=== PATIENT | female | born 1965 | race African-American/Black ===

== ENCOUNTER 2017-10-21 12:21 | Inpatient (IN) | payer OTHER ==
[~2017-10-21] VITALS: Ht 160 cm; Wt 93.0 kg
[~2017-10-21 12:21] MED LIST: AMLODIPINE BESYL5 MG PO; ATROPINE SULFAT15 ML OD; CETIRIZINE HCL10 MG PO; COREG12.5 MG PO; DOXAZOSIN MESYLA2 MG PO; DUREZOL5 ML OD; FUROSEMIDE40 MG/4 ML IV; GABAPENTIN100 MG PO; HYDRALAZINE HCL25 MG PO; ISOSORBIDE MONO20 MG PO; LABETALOL HCL200 MG PO; LASIX20 MG PO; LASIX40 MG PO; LEVAQUIN250 MG PO; LEVEMIR100 UNIT/1 SQ; LIPITOR80 MG PO; METHAZOLAMIDE50 MG PO; NIFEDICAL XL60 MG PO; PANTOPRAZOLE SO40 MG PO; PAROXETINE HCL20 MG PO; PLAVIX75 MG PO; PREDNISONE10 MG PO; PREDNISONE20 MG PO; PROAIR HFA INH8.5 GM INH; SYMBICORT 16010.2 GM INH; ZOFRAN ODT4 MG SL
--- NOTE | 2017-10-21 12:59 | Diagnostic Imaging Report ---
PROCEDURE: CHEST SINGLE (PORTABLE) COMPARISON: Chest radiograph 01/15/2017, chest CT 01/16/2017 INDICATIONS: CHEST PAIN FINDINGS: Lungs are reasonably well inflated. No focal airspace consolidation, pleural effusion, or pneumothorax. Stable cardiomediastinal contour with mild bilateral hilar prominence shown to represent prominent pulmonary arterial structures on comparison chest CT. Pulmonary venous congestion. No acute osseous abnormality. CONCLUSION: Pulmonary venous congestion, similar in degree to that noted in December 2016. Dictated by: Gama Perez M.D. on 10/21/2017 at 13:06 Electronically approved by: Gama Perez M.D. on 10/21/2017 at 13:06
[2017-10-21 13:06] LABS: BASOPHILS % 0.1 % (0.0-1.0); EOSINOPHILS # (AUTO) 0.1 (0.0-0.4); HEMATOCRIT 32.1 % (34.2-44.1); HEMOGLOBIN 10.1 g/dL (12.0-16.0); LYMPHOCYTES # (AUTO) 0.4 (1.0-3.2); LYMPHOCYTES % 5.5 % (18.0-39.1); MEAN CORPUSCULAR HEMOGLOBIN 27.7 pg (28-32); MEAN CORPUSCULAR HGB CONC 31.5 g/dL (31-35); MEAN CORPUSCULAR VOLUME 88.2 fL (81-99); MONOCYTES # (AUTO) 0.5 (0.2-0.8); MONOCYTES % 6.7 % (4.4-11.3); NEUTROPHILS # (AUTO) 6.8 (2.1-6.9); NEUTROPHILS % 86.2 % (38.7-80.0); PLATELET COUNT 212 x10e3/uL (140-360); RED BLOOD COUNT 3.64 x10e6/uL (3.6-5.1); RED CELL DISTRIBUTION WIDTH 14.2 % (11.7-14.4)
[2017-10-21 13:19] LABS: INR 0.92; PROTHROMBIN TIME 12.8 seconds (11.9-14.5)
[2017-10-21 13:29] LABS: ALBUMIN 3.9 g/dL (3.5-5.0); ALBUMIN/GLOBULIN RATIO 0.8 (0.8-2.0); ANION GAP 17.2 mmol/L (8-16); CALCIUM 9.6 mg/dL (8.4-10.2); CREATININE, SERUM 4.34 mg/dL (0.57-1.11); POTASSIUM 3.2 mmol/L (3.5-5.1)
[2017-10-21 13:36] LABS: CREATINE KINASE MB 1.6 ng/mL (0.00-5.00); TROPONIN I 0.07 ng/mL (0-0.300)
[2017-10-21] MEDS ORDERED: FUROSEMIDE INJ 10 MG/ML 4 ML VIAL IV ONE ×2 (14:00)
[2017-10-21] MEDS: NIFEDIPINE CR 30 MG TAB PO SCH (16:59)
[2017-10-21] MEDS ORDERED: FUROSEMIDE INJ 10 MG/ML 4 ML VIAL IV SCH ×2 (17:00→21:00)
--- NOTE | 2017-10-21 17:58 | Consultation ---
DATE OF CONSULTATION: October 21, 2017 RENAL CONSULTATION HISTORY OF PRESENT ILLNESS: Ms. Leslie Glez is well known to me. She is a 52-year-old female. Underlying history of chronic kidney disease stage 4. Prior acute kidney injury, congestive heart failure, fluid overload. Difficult to control hypertension. Very noncompliant. Admitted with fluid overload and congestive heart failure. Renal consult for management of kidney failure. Creatinine 4.34. Bicarbonate 21. Potassium 3.2. White count 7.9. Hemoglobin 10.1. INR 0.92. LFTs relatively normal. Patient currently awake, alert, lying supine, no apparent respiratory distress. Denies nausea, vomiting, shortness of breath or cough. Also denies any fever and chills. Chest x-ray highly suggestive of congestive heart failure with fluid in the fissure, cardiomegaly, bilateral pulmonary infiltrates. Currently on Lasix 80 mg IV b.i.d. She is on heparin, nifedipine 30 mg p.o. q.12. For dose schedule, please see MAR. SOCIAL HISTORY: Does not smoke or drink. FAMILY HISTORY: Significant for hypertension. PHYSICAL EXAMINATION: GENERAL: Awake, alert, lying supine, no apparent distress. VITALS: Blood pressure of 130/60, pulse rate 80. HEAD AND NECK: Cornea clear. Oral mucosa dry. Neck veins flat. LUNGS: Harsh vesicular breath sounds, relatively clear with scattered rales bilateral bibasilar. HEART: S1/S2 audible. No rubs or gallop. ABDOMEN: Otherwise soft, nontender. LOWER EXTREMITY EXAMINATION: Shows 1+ edema. IMPRESSION: [id number] kidney failure with evidence of third-spacing edema, congestive heart failure, hypertensive heart failure. Titrate blood pressure medications. Will discontinue Lasix, start diuresing. No acute indications for dialysis. Discussed with RN. Discussed with patient. Will place on salt and fluid restriction. Further recommendations to follow. Job#: [id number] СВЕТЛАНА
[2017-10-21 19:21] VITALS: BP 148/72
[2017-10-21] MEDS: ALBUTEROL/IPRATROPIUM 3 ML NEB NEB SCH ×2 (20:14→23:20)
[2017-10-21 21:39] LABS: CREATINE KINASE MB 1.3 ng/mL (0.00-5.00); TROPONIN I 0.092 ng/mL (0-0.300)
[2017-10-21] MEDS: HEPARIN SOD (PORCINE) 5,000 UNIT/ML VIAL SC SCH (22:00)
[2017-10-21] MEDS: BUMETANIDE INJ 0.25MG/ML 4ML VIAL IV SCH (22:00)
[2017-10-22 00:30] VITALS: BP 165/87
[2017-10-22] MEDS: HYDRALAZINE HCL 20 MG/ML VIAL IV PRN ×2 (00:40→05:00)
[2017-10-22] MEDS: ACETAMINOPHEN 325 MG TAB PO PRN (01:15)
[2017-10-22] MEDS: ALBUTEROL/IPRATROPIUM 3 ML NEB NEB SCH ×5 (02:17→23:00)
[2017-10-22 04:00] VITALS: BP 164/91
[2017-10-22] MEDS: BUMETANIDE INJ 0.25MG/ML 4ML VIAL IV SCH ×3 (05:56→21:21)
--- NOTE | 2017-10-22 06:42 | Diagnostic Imaging Report ---
EXAM: CHEST SINGLE (PORTABLE), AP 1 view DATE: 10/22/2017 7:00 AM Time stamp on exam: 0556 hours INDICATION: Cough COMPARISON: AP view of the chest October 21, 2017 FINDINGS: LINES/TUBES: None LUNGS: Pulmonary edema PLEURA: No effusions or pneumothorax. HEART AND MEDIASTINUM: Stable appearance with mediastinal lymphadenopathy BONES AND SOFT TISSUES: No acute findings. IMPRESSION: No interval change Signed by: Dr. Ninoska Melendez M.D. on 10/22/2017 6:39 AM
[2017-10-22 07:21] LABS: BASOPHILS % 0.1 % (0.0-1.0); EOSINOPHILS % 0.1 % (0.0-6.0); HEMATOCRIT 31.9 % (34.2-44.1); HEMOGLOBIN 9.8 g/dL (12.0-16.0); LYMPHOCYTES # (AUTO) 0.3 (1.0-3.2); LYMPHOCYTES % 2.5 % (18.0-39.1); MEAN CORPUSCULAR HEMOGLOBIN 27.8 pg (28-32); MEAN CORPUSCULAR HGB CONC 30.7 g/dL (31-35); MEAN CORPUSCULAR VOLUME 90.6 fL (81-99); MONOCYTES # (AUTO) 0.7 (0.2-0.8); MONOCYTES % 6.2 % (4.4-11.3); NEUTROPHILS # (AUTO) 9.5 (2.1-6.9); NEUTROPHILS % 90.7 % (38.7-80.0); PLATELET COUNT 165 x10e3/uL (140-360); RED BLOOD COUNT 3.52 x10e6/uL (3.6-5.1); RED CELL DISTRIBUTION WIDTH 14.3 % (11.7-14.4)
[2017-10-22 07:53] LABS: ALBUMIN 3.3 g/dL (3.5-5.0); ALBUMIN/GLOBULIN RATIO 0.8 (0.8-2.0); ANION GAP 16.2 mmol/L (8-16); CALCIUM 9.6 mg/dL (8.4-10.2); CREATININE, SERUM 4.4 mg/dL (0.57-1.11); MAGNESIUM 2.1 MG/DL (1.3-2.1); POTASSIUM 3.2 mmol/L (3.5-5.1)
[2017-10-22] MEDS: ASPIRIN 81 MG CHEW TAB PO SCH (08:36)
[2017-10-22] MEDS: NIFEDIPINE CR 30 MG TAB PO SCH ×2 (08:36→16:50)
[2017-10-22] MEDS: HEPARIN SOD (PORCINE) 5,000 UNIT/ML VIAL SC SCH ×2 (08:37→21:21)
[2017-10-22 08:40] VITALS: BP 164/94
[2017-10-22 08:43] LABS: CREATINE KINASE MB 0.9 ng/mL (0.00-5.00); TROPONIN I 0.158 ng/mL (0-0.300)
[2017-10-22 10:38] LABS: BAND NEUTROPHILS % (MANUAL) 4 %; LYMPHOCYTES % (MANUAL) 2 % (19-48); MONOCYTES % (MANUAL) 8 % (3.4-9.0); NEUTROPHILS % (MANUAL) 86 % (40-74); PLATELET ESTIMATE ADEQUATE; RBC MORPHOLOGY COMMENT NORMAL
[2017-10-22 10:39] LABS: PLATELET MORPHOLOGY COMMENT FEW EDTA CLUMPING
[2017-10-22] MEDS ORDERED: LEVOFLOXACIN 500 MG TAB PO ONE (12:45)
[2017-10-22] MEDS ORDERED: POTASSIUM CHLORIDE 20 MEQ TAB CR PO ONE (14:00)
[2017-10-22] MEDS ORDERED: LACTULOSE SYRUP 20 GM/30 ML UDC PO ONE (14:15)
[2017-10-22] MEDS ORDERED: AZITHROMYCIN 250MG/NS 100 ML 100 ML IV ONE (16:00)
[2017-10-22 16:19] VITALS: BP 130/79
[2017-10-22] MEDS: CEFTRIAXONE SOD 1 GM in WATER STERILE 10ML VIAL 10 ML IV SCH (16:50)
[2017-10-22 20:00] VITALS: BP 142/76
--- NOTE | 2017-10-22 21:53 | Diagnostic Imaging Report ---
EXAM: CT CHEST WO DATE: 10/22/2017 3:52 PM Time stamp on exam: 2047 hours INDICATION: Coughing up blood, pulmonary edema COMPARISON: AP view the chest October 22, [address] of the chest January 16, 2017 TECHNIQUE: Multidetector CT scanning of the chest was performed. Coronal and sagittal multiplanar reformations were obtained. Routine protocol performed. IV Contrast: None CTDIvol has been reviewed. It is below the limits set by the Radiation Protocol Committee (RPC). FINDINGS: LUNGS AND AIRWAYS: The trachea and major bronchi are unremarkable. Groundglass opacities in the bilateral upper lungs, left lower lobe and a larger conglomerate of centrilobular groundglass opacities in the right lung base. PLEURA: No effusions or pneumothorax. HEART, MEDIASTINUM, VESSELS: No interval change. Stable mediastinal lymphadenopathy. Mild nonspecific debris in the esophagus. UPPER ABDOMEN: Cholecystectomy MUSCULOSKELETAL: No acute findings. IMPRESSION: Interval development of bilateral multilobar centrilobular groundglass opacities, predominantly in the right lung base. The differential includes multifocal pneumonia, aspiration or hemorrhage. Signed by: Dr. Ninoska Melendez M.D. on 10/22/2017 9:49 PM
[2017-10-23] VITALS: BP 136/70
[2017-10-23 04:00] VITALS: BP 141/72
[2017-10-23] MEDS: BUMETANIDE INJ 0.25MG/ML 4ML VIAL IV SCH ×3 (06:05→21:13)
--- NOTE | 2017-10-23 06:09 | Diagnostic Imaging Report ---
EXAM: CHEST SINGLE (PORTABLE), AP 1 view DATE: 10/23/2017 5:38 AM Time stamp on exam: 0527 hours INDICATION: Cough COMPARISON: AP view of the chest October 22, 2017 FINDINGS: LINES/TUBES: None LUNGS: Bilateral groundglass opacities, largest in the right lung base. PLEURA: No effusions or pneumothorax. HEART AND MEDIASTINUM: Mediastinal lymphadenopathy. BONES AND SOFT TISSUES: No acute findings. IMPRESSION: Stable appearance of the chest with bilateral groundglass opacities, largest in the right lung base. Signed by: Dr. Ninoska Melendez M.D. on 10/23/2017 6:05 AM
[2017-10-23 06:27] LABS: BASOPHILS % 0.1 % (0.0-1.0); EOSINOPHILS # (AUTO) 0.1 (0.0-0.4); EOSINOPHILS % 0.5 % (0.0-6.0); HEMATOCRIT 27.1 % (34.2-44.1); HEMOGLOBIN 8.4 g/dL (12.0-16.0); LYMPHOCYTES # (AUTO) 0.8 (1.0-3.2); LYMPHOCYTES % 8.6 % (18.0-39.1); MEAN CORPUSCULAR VOLUME 90.3 fL (81-99); MONOCYTES # (AUTO) 0.9 (0.2-0.8); MONOCYTES % 9.6 % (4.4-11.3); NEUTROPHILS # (AUTO) 7.5 (2.1-6.9); NEUTROPHILS % 80.8 % (38.7-80.0); PLATELET COUNT 176 x10e3/uL (140-360)
[2017-10-23 06:51] LABS: ANION GAP 12.4 mmol/L (8-16); CALCIUM 9.2 mg/dL (8.4-10.2); CREATININE, SERUM 4.68 mg/dL (0.57-1.11); MAGNESIUM 1.9 MG/DL (1.3-2.1); POTASSIUM 3.4 mmol/L (3.5-5.1)
[2017-10-23] MEDS: ALBUTEROL/IPRATROPIUM 3 ML NEB NEB SCH ×3 (07:00→20:05)
[2017-10-23 07:13] LABS: THYROID STIMULATING HORMONE 0.945 uIU/mL (0.350-4.940)
[2017-10-23 08:36] VITALS: BP 131/74
[2017-10-23] MEDS: ASPIRIN 81 MG CHEW TAB PO SCH (08:55)
[2017-10-23] MEDS: NIFEDIPINE CR 30 MG TAB PO SCH ×2 (08:55→18:22)
[2017-10-23] MEDS: HEPARIN SOD (PORCINE) 5,000 UNIT/ML VIAL SC SCH ×2 (08:58→21:30)
[2017-10-23 12:19] VITALS: BP 127/66
[2017-10-23 16:20] VITALS: BP 122/72
--- NOTE | 2017-10-23 16:33 | Consultation ---
DATE OF CONSULTATION: October 23, 2017 PULMONARY CONSULTATION ADDENDUM: Ms. Glez did smoke for 40 years, but has quit. She has a history of exposure to syphilis. She admits that she did not complete treatment. Job#: [id number] GH
--- NOTE | 2017-10-23 16:38 | Consultation ---
DATE OF CONSULTATION: October 23, 2017 PULMONARY CONSULTATION A patient of Dr. Montano, Dr. Pierce. An unfortunate 52-year-old woman with a history of congestive heart failure, cardiomyopathy of uncertain etiology, history of chronic kidney disease, history of hypertension, history of stroke with blindness in the right eye. Ejection fraction in the past has been estimated at 25%. She has presumed obstructive sleep apnea. SHE IS ALLERGIC TO PENICILLIN. Her medications currently include Lipitor, Zyrtec, Plavix, Cardura, Lasix, Ismo, labetalol, nifedipine, Protonix, Paxil, prednisone 10. She has had an AV fistula placed in the left arm. She has had carpal tunnel surgery. Nonsmoker. Worked in a skilled nursing. Family history noncontributory. PHYSICAL EXAMINATION GENERAL: This is a moderately obese white female looking somewhat older than her stated age. VITAL SIGNS: Temperature max 100.5, pulse 84, respirations 18, blood pressure 131/70. NEUROLOGIC: She is somewhat anxious. LUNGS: Rales, right greater than left. HEART: Regular rhythm. ABDOMEN: Nontender. EXTREMITIES: AV fistula left arm, apparently never accessed. IMPRESSION: 1. Chronic kidney disease. 2. Hypertension. 3. Polyclonal gammopathy. 4. Congestive heart failure. 5. Presumed pneumonia right lung. 6. Possible aspiration. PLAN: Will be continuing empiric antibiotics. Therapy of broad-spectrum antibiotic coverage to include anaerobic organisms. BiPAP p.r.n. Sleep apnea is noted. Thank you for this kind referral. Job#: [id number] EV
[2017-10-23] MEDS: CEFTRIAXONE SOD 1 GM in WATER STERILE 10ML VIAL 10 ML IV SCH (18:22)
[2017-10-23] MEDS: DOXYCYCLINE HYCLATE TABLET 100 MG TAB PO SCH (18:23)
[2017-10-23 19:51] VITALS: BP 123/74
[2017-10-23] MEDS: ACETAMINOPHEN 325 MG TAB PO PRN (20:56)
[2017-10-23 22:11] LABS: BILIRUBIN,URINE NEGATIVE (NEGATIVE); KETONES,URINE NEGATIVE (NEGATIVE); LEUKOCYTE ESTERASE ,URINE NEGATIVE (NEGATIVE); NITRITE,URINE NEGATIVE (NEGATIVE); PROTEIN,URINE DIPSTICK 3+ (NEGATIVE); URINE UROBILINOGEN 0.2 mg/dL (0.2 - 1)
[2017-10-23 22:12] LABS: CLARITY,URINE SL CLOUDY (CLEAR); COLOR,URINE YELLOW (YELLOW)
[2017-10-23 22:23] LABS: AMORPHOUS SEDIMENT,URINE MANY (FEW); BACTERIA,URINE FEW /HPF; EPITHELIAL CELLS,URINE MODERATE /LPF; RBC,URINE 0-5 /HPF (0-5); WBC,URINE (MAN) 0-5 /HPF (0-5)
[2017-10-24 00:23] VITALS: BP 128/69
[2017-10-24] MEDS: ALBUTEROL/IPRATROPIUM 3 ML NEB NEB SCH ×4 (00:30→20:12)
[2017-10-24] MEDS: ACETAMINOPHEN/CODEINE 300MG - 30MG TAB PO PRN ×2 (01:30→21:28)
[2017-10-24 05:21] VITALS: BP 122/63
[2017-10-24] MEDS: BUMETANIDE INJ 0.25MG/ML 4ML VIAL IV SCH ×3 (06:10→22:00)
[2017-10-24 06:31] LABS: BASOPHILS % 0.1 % (0.0-1.0); EOSINOPHILS # (AUTO) 0.2 (0.0-0.4); HEMATOCRIT 25.6 % (34.2-44.1); HEMOGLOBIN 8.1 g/dL (12.0-16.0); LYMPHOCYTES # (AUTO) 0.8 (1.0-3.2); LYMPHOCYTES % 10.9 % (18.0-39.1); MEAN CORPUSCULAR HGB CONC 31.6 g/dL (31-35); MEAN CORPUSCULAR VOLUME 88.6 fL (81-99); MONOCYTES # (AUTO) 0.7 (0.2-0.8); MONOCYTES % 9.1 % (4.4-11.3); NEUTROPHILS # (AUTO) 5.7 (2.1-6.9); NEUTROPHILS % 77.2 % (38.7-80.0); PLATELET COUNT 187 x10e3/uL (140-360); RED BLOOD COUNT 2.89 x10e6/uL (3.6-5.1); RED CELL DISTRIBUTION WIDTH 14.1 % (11.7-14.4)
[2017-10-24 06:52] LABS: ALBUMIN 2.9 g/dL (3.5-5.0); ALBUMIN/GLOBULIN RATIO 0.7 (0.8-2.0); ANION GAP 13.5 mmol/L (8-16); CREATININE, SERUM 5.3 mg/dL (0.57-1.11); POTASSIUM 3.5 mmol/L (3.5-5.1)
[2017-10-24 07:33] LABS: HIV 1&2 AB SCREEN NON-REACTIVE (NONREACTIVE)
--- NOTE | 2017-10-24 08:29 | Consultation ---
DATE OF CONSULTATION: October 22, 2017 REQUESTING PHYSICIAN: Dr. Bradshaw. REASON FOR CONSULTATION: History for recent positive RPR. HISTORY OF PRESENT ILLNESS: The patient is a 52-year-old female patient recently admitted to [facility] with a chief complaint of pulmonary edema and fluid overload. She was treated and discharged home, but within 72 hours came back to [facility] with a chief complaint of shortness of breath and cough, and was found to have pulmonary edema and currently nephrology is treating her. 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 She denies any similar history in the past. She does not recall having being treated or tested in the past. PAST MEDICAL HISTORY: 1. Positive for hypertension. 2. Chronic kidney disease, stage 4. ALLERGIES: PENICILLIN. CURRENT HOSPITAL MEDICATIONS: She is not on any medicines at this point. FAMILY HISTORY: Positive for diabetes. SOCIAL HISTORY: She does not smoke or drink. REVIEW OF SYSTEMS: Ten systems reviewed. Those were negative except as per history of present illness. PHYSICAL EXAMINATION VITAL SIGNS: Temperature was up to 101.5, heart rate 108, respirations 20, blood pressure 164/94. HEENT: Pupils are equal and reactive. Throat is clear. CHEST: Clear. HEART: Regular rhythm and rate. No murmurs. ABDOMEN: Soft and lax. Liver and spleen not enlarged. No masses or areas of tenderness. No guarding or rigidity. EXTREMITIES: Lower extremities with no edema. LABORATORY DATA: Her white count is 10.49, hemoglobin 9.8, hematocrit 31.9, platelet count 165,000. Chemistry shows sodium 144, potassium 3.2, chloride 110, CO2 of 21, BUN 16.2, is 41, creatinine 4.4, blood sugar 10. LFTs are within normal limits. Flu A and B were negative. IMAGING: Chest x-ray shows pulmonary vascular congestion. IMPRESSION 1. Fever, rule out pneumonia versus other. Will order a UA and urine culture also. Will also order 2 sets of blood cultures. Will order CT scan of the chest as I believe the patient possibly could have pneumonia. 2. As far as the history of LFT antibodies positive, she could be having latent tuberculosis versus old treated syphilis. Will need more detailed history and will also need to confirm the test as I do not have that result available at this stage. 3. Hypertension. 4. Chronic kidney disease stage 4. RECOMMENDATIONS: 1. CT chest without contrast. 2. Repeat RPR and LFT antibodies. 3. Will order Rocephin and azithromycin for now. 4. Pending clinical response, further recommendations to follow. Thank you for the kind consultation. Job#: [id number] ABDOULAYE
[2017-10-24 08:49] VITALS: BP 104/59
[2017-10-24] MEDS: ASPIRIN 81 MG CHEW TAB PO SCH (09:29)
[2017-10-24] MEDS: NIFEDIPINE CR 30 MG TAB PO SCH ×2 (09:30→17:08)
[2017-10-24] MEDS: DOXYCYCLINE HYCLATE TABLET 100 MG TAB PO SCH ×2 (09:30→17:09)
[2017-10-24] MEDS: HEPARIN SOD (PORCINE) 5,000 UNIT/ML VIAL SC SCH ×2 (09:39→21:20)
[2017-10-24] MEDS ORDERED: DEXTROSE 50% SYRINGE 50 ML IV PRN (11:30)
[2017-10-24] MEDS: INSULIN LISPRO 100 UNIT/1 ML 3ML VIAL SQ SCH ×3 (11:30→21:00)
[2017-10-24 16:32] VITALS: BP 121/73
[2017-10-24] MEDS: CEFTRIAXONE SOD 1 GM in WATER STERILE 10ML VIAL 10 ML IV SCH (17:08)
[2017-10-24 21:07] VITALS: BP 133/67
[2017-10-24] MEDS: BENZONATATE 100 MG CAP PO SCH (22:28)
[2017-10-24] MEDS ORDERED: BENZONATATE 100 MG CAP PO ONE (22:30)
[2017-10-25 00:33] VITALS: BP 130/68
[2017-10-25] MEDS: ALBUTEROL/IPRATROPIUM 3 ML NEB NEB SCH ×4 (00:50→20:01)
[2017-10-25 05:03] VITALS: BP 118/64
[2017-10-25] MEDS: BUMETANIDE INJ 0.25MG/ML 4ML VIAL IV SCH ×3 (06:00→21:26)
[2017-10-25] MEDS: INSULIN LISPRO 100 UNIT/1 ML 3ML VIAL SQ SCH ×4 (07:30→21:00)
[2017-10-25 08:00] VITALS: BP 135/77
[2017-10-25 08:21] LABS: BASOPHILS % 0.3 % (0.0-1.0); EOSINOPHILS # (AUTO) 0.2 (0.0-0.4); EOSINOPHILS % 3.3 % (0.0-6.0); HEMATOCRIT 26.6 % (34.2-44.1); HEMOGLOBIN 8.3 g/dL (12.0-16.0); LYMPHOCYTES % 16.3 % (18.0-39.1); MEAN CORPUSCULAR HEMOGLOBIN 27.9 pg (28-32); MEAN CORPUSCULAR HGB CONC 31.2 g/dL (31-35); MEAN CORPUSCULAR VOLUME 89.6 fL (81-99); MONOCYTES # (AUTO) 0.5 (0.2-0.8); MONOCYTES % 8.7 % (4.4-11.3); NEUTROPHILS # (AUTO) 4.1 (2.1-6.9); NEUTROPHILS % 70.2 % (38.7-80.0); PLATELET COUNT 205 x10e3/uL (140-360); RED BLOOD COUNT 2.97 x10e6/uL (3.6-5.1); RED CELL DISTRIBUTION WIDTH 14.1 % (11.7-14.4)
[2017-10-25 08:31] LABS: ANION GAP 14.5 mmol/L (8-16); CALCIUM 9.2 mg/dL (8.4-10.2); CREATININE, SERUM 5.45 mg/dL (0.57-1.11); MAGNESIUM 1.8 MG/DL (1.3-2.1); POTASSIUM 3.5 mmol/L (3.5-5.1)
[2017-10-25] MEDS: NIFEDIPINE CR 30 MG TAB PO SCH ×2 (09:00→16:23)
[2017-10-25] MEDS: BENZONATATE 100 MG CAP PO SCH ×2 (09:24→16:23)
[2017-10-25] MEDS: ASPIRIN 81 MG CHEW TAB PO SCH (09:24)
[2017-10-25] MEDS: DOXYCYCLINE HYCLATE TABLET 100 MG TAB PO SCH ×2 (09:24→16:23)
[2017-10-25] MEDS: HEPARIN SOD (PORCINE) 5,000 UNIT/ML VIAL SC SCH ×2 (09:29→21:25)
[2017-10-25 12:00] VITALS: BP 128/66
[2017-10-25] MEDS ORDERED: LACTULOSE SYRUP 20 GM/30 ML UDC PO ONE (12:00)
[2017-10-25] MEDS: CEFTRIAXONE SOD 1 GM in WATER STERILE 10ML VIAL 10 ML IV SCH (16:00)
[2017-10-25] MEDS: NYSTATIN 15 GM POWDER UD BTL TOP SCH (16:23)
[2017-10-25 16:30] VITALS: BP 138/74
[2017-10-25 19:53] VITALS: BP 137/68
[2017-10-26] VITALS (7 sets, daily range): BP systolic 135–154; BP diastolic 71–85
[2017-10-26] MEDS: ALBUTEROL/IPRATROPIUM 3 ML NEB NEB SCH ×4 (00:44→23:18)
[2017-10-26] MEDS: BUMETANIDE INJ 0.25MG/ML 4ML VIAL IV SCH ×3 (06:05→22:09)
[2017-10-26] MEDS: INSULIN LISPRO 100 UNIT/1 ML 3ML VIAL SQ SCH ×4 (07:30→20:33)
[2017-10-26 07:33] LABS: INR 0.95; PROTHROMBIN TIME 13.2 seconds (11.9-14.5)
[2017-10-26 07:34] LABS: PARTIAL THROMBOPLASTIN TIME 33.4 seconds (23.8-35.5)
[2017-10-26 08:00] LABS: ALBUMIN 2.6 g/dL (3.5-5.0); ALBUMIN/GLOBULIN RATIO 0.6 (0.8-2.0); ANION GAP 14.6 mmol/L (8-16); CALCIUM 8.9 mg/dL (8.4-10.2); CREATININE, SERUM 5.35 mg/dL (0.57-1.11); POTASSIUM 3.6 mmol/L (3.5-5.1)
[2017-10-26] MEDS: HEPARIN SOD (PORCINE) 5,000 UNIT/ML VIAL SC SCH ×2 (08:39→20:30)
[2017-10-26] MEDS: NYSTATIN 15 GM POWDER UD BTL TOP SCH ×2 (08:42→17:28)
[2017-10-26] MEDS: ASPIRIN 81 MG CHEW TAB PO SCH (08:42)
[2017-10-26] MEDS: BENZONATATE 100 MG CAP PO SCH ×2 (08:42→17:28)
[2017-10-26] MEDS: DOXYCYCLINE HYCLATE TABLET 100 MG TAB PO SCH ×2 (08:42→17:28)
[2017-10-26] MEDS: NIFEDIPINE CR 30 MG TAB PO SCH ×2 (08:42→17:28)
[2017-10-26] MEDS ORDERED: LACTULOSE SYRUP 20 GM/30 ML UDC PO ONE (08:45)
[2017-10-26] MEDS ORDERED: LIDOCAINE HCL 2% LOCAL 20 ML VIAL ONE (14:35)
[2017-10-26] MEDS ORDERED: MIDAZOLAM HCL 2 MG/2 ML VIAL ONE (14:35)
[2017-10-26] MEDS ORDERED: FENTANYL CITRATE/PF 100MCG/2 ML INJ ONE (14:35)
[2017-10-26] MEDS ORDERED: SODIUM CHLORIDE 0.9% 500ML 1,000 ML ONE (14:36)
[2017-10-26] MEDS ORDERED: HEPARIN SOD (PORCINE) 1000 UNIT/ML 30ML ONE (15:31)
[2017-10-26] MEDS: CEFTRIAXONE SOD 1 GM in WATER STERILE 10ML VIAL 10 ML IV SCH (16:09)
[2017-10-26] MEDS: ACETAMINOPHEN 325 MG TAB PO PRN (17:28)
[2017-10-26] MEDS ORDERED: HEPARIN SOD (PORCINE) 1000 UNIT/ML SDV ONE (17:34)
[2017-10-26] MEDS ORDERED: SODIUM CHLORIDE 0.9% 1000ML 1,000 ML ONE (17:34)
[2017-10-26] MEDS ORDERED: MANNITOL 25% 12.5GM/50ML 50 ML ONE (18:07)
[2017-10-27] VITALS: BP 162/86
[2017-10-27 04:00] VITALS: BP 163/86
[2017-10-27] MEDS: BUMETANIDE INJ 0.25MG/ML 4ML VIAL IV SCH ×3 (05:30→20:51)
[2017-10-27] MEDS: INSULIN LISPRO 100 UNIT/1 ML 3ML VIAL SQ SCH ×4 (07:30→20:44)
[2017-10-27] MEDS: ALBUTEROL/IPRATROPIUM 3 ML NEB NEB SCH ×4 (07:30→23:05)
[2017-10-27 07:39] LABS: ANION GAP 12.7 mmol/L (8-16); CALCIUM 9.1 mg/dL (8.4-10.2); CREATININE, SERUM 3.85 mg/dL (0.57-1.11); MAGNESIUM 1.7 MG/DL (1.3-2.1); POTASSIUM 3.7 mmol/L (3.5-5.1)
[2017-10-27] MEDS ORDERED: MANNITOL 25% 12.5GM/50 ML VIAL IV PRN (08:15)
[2017-10-27] MEDS ORDERED: HEPARIN SOD (PORCINE) 1000 UNIT/ML SDV IV PRN (08:15)
[2017-10-27] MEDS ORDERED: SODIUM CHLORIDE 0.9% 1000ML 1,000 ML IV PRN (08:15)
[2017-10-27] MEDS ORDERED: ALBUMIN HUMAN 50 ML IV PRN (08:15)
[2017-10-27] MEDS: DOXYCYCLINE HYCLATE TABLET 100 MG TAB PO SCH (09:00)
[2017-10-27] MEDS: NIFEDIPINE CR 30 MG TAB PO SCH ×2 (09:00→16:32)
[2017-10-27] MEDS: BENZONATATE 100 MG CAP PO SCH ×2 (09:00→16:32)
[2017-10-27] MEDS: NYSTATIN 15 GM POWDER UD BTL TOP SCH ×2 (09:04→16:39)
[2017-10-27] MEDS: HEPARIN SOD (PORCINE) 5,000 UNIT/ML VIAL SC SCH ×2 (09:18→20:47)
[2017-10-27] MEDS ORDERED: ONDANSETRON HCL 4 MG ORAL DISINTEGRATING TAB PO PRN (11:30)
[2017-10-27] MEDS: ASPIRIN 81 MG CHEW TAB PO SCH (11:37)
[2017-10-27 11:39] LABS: AMYLASE 68 U/L (25-125); LIPASE 30 U/L (8-78)
[2017-10-27 12:06] VITALS: BP 119/44
[2017-10-27] MEDS ORDERED: ALBUTEROL/IPRATROPIUM 3 ML NEB NEB SCH (15:00)
[2017-10-27 16:36] VITALS: BP 140/77
[2017-10-27] MEDS: CEFTRIAXONE SOD 1 GM in WATER STERILE 10ML VIAL 10 ML IV SCH (18:09)
[2017-10-27 20:00] VITALS: BP 173/74
[2017-10-28] VITALS: BP 139/71
[2017-10-28 04:00] VITALS: BP 133/71
[2017-10-28] MEDS: BUMETANIDE INJ 0.25MG/ML 4ML VIAL IV SCH ×3 (05:13→21:55)
[2017-10-28] MEDS: ALBUTEROL/IPRATROPIUM 3 ML NEB NEB SCH ×3 (07:10→23:00)
[2017-10-28] MEDS: INSULIN LISPRO 100 UNIT/1 ML 3ML VIAL SQ SCH ×4 (07:30→21:00)
[2017-10-28 08:13] VITALS: BP 124/69
[2017-10-28] MEDS: BENZONATATE 100 MG CAP PO SCH ×2 (10:02→17:20)
[2017-10-28] MEDS: NIFEDIPINE CR 30 MG TAB PO SCH ×2 (10:02→17:00)
[2017-10-28] MEDS: ASPIRIN 81 MG CHEW TAB PO SCH (10:02)
[2017-10-28] MEDS: NYSTATIN 15 GM POWDER UD BTL TOP SCH ×2 (10:03→17:17)
[2017-10-28] MEDS: HEPARIN SOD (PORCINE) 5,000 UNIT/ML VIAL SC SCH ×2 (10:03→21:35)
[2017-10-28 10:40] LABS: CREATININE,URINE RANDOM 74.11 mg/dL (47-110)
[2017-10-28 12:00] VITALS: BP 145/93
[2017-10-28] MEDS ORDERED: SODIUM CHLORIDE 0.9% 1000ML 2,000 ML IV PRN (16:00)
[2017-10-28] MEDS ORDERED: HEPARIN SOD (PORCINE) 1000 UNIT/ML SDV IV PRN (16:00)
[2017-10-28] MEDS ORDERED: SODIUM CHLORIDE 0.9% 250ML 500 ML IV PRN (16:00)
[2017-10-28 16:37] VITALS: BP 132/78
[2017-10-28 20:00] VITALS: BP 143/75
[2017-10-28] MEDS: CEFTRIAXONE SOD 1 GM in WATER STERILE 10ML VIAL 10 ML IV SCH (20:21)
[2017-10-28] MEDS: ACETAMINOPHEN/CODEINE 300MG - 30MG TAB PO PRN (21:55)
[2017-10-29] VITALS: BP 131/75
[2017-10-29 04:00] VITALS: BP 141/80
[2017-10-29] MEDS: BUMETANIDE INJ 0.25MG/ML 4ML VIAL IV SCH ×3 (05:56→20:52)
[2017-10-29] MEDS: INSULIN LISPRO 100 UNIT/1 ML 3ML VIAL SQ SCH ×4 (07:30→20:44)
[2017-10-29] MEDS: ALBUTEROL/IPRATROPIUM 3 ML NEB NEB SCH ×2 (07:30→14:25)
[2017-10-29 08:01] VITALS: BP 153/67
[2017-10-29] MEDS: BENZONATATE 100 MG CAP PO SCH (09:38)
[2017-10-29] MEDS: ASPIRIN 81 MG CHEW TAB PO SCH (09:38)
[2017-10-29] MEDS: HEPARIN SOD (PORCINE) 5,000 UNIT/ML VIAL SC SCH ×3 (09:39→21:00)
[2017-10-29] MEDS: NIFEDIPINE CR 30 MG TAB PO SCH ×2 (09:42→17:10)
[2017-10-29] MEDS: NYSTATIN 15 GM POWDER UD BTL TOP SCH ×2 (09:42→17:10)
[2017-10-29 13:50] VITALS: BP 137/78
[2017-10-29 16:18] LABS: TOTAL PROTEIN, URINE 194.5 mg/dL (1-14)
[2017-10-29 16:25] LABS: TOTAL PROTEIN 24HR, URINE 729.3 mg/24hr (50-100)
[2017-10-29 16:50] VITALS: BP 120/69
[2017-10-29 20:00] VITALS: BP 128/66
[2017-10-30] VITALS: BP 139/66
[2017-10-30] MEDS: ALBUTEROL/IPRATROPIUM 3 ML NEB NEB SCH ×4 (01:00→23:00)
[2017-10-30 04:00] VITALS: BP 110/58
[2017-10-30] MEDS: BUMETANIDE INJ 0.25MG/ML 4ML VIAL IV SCH ×3 (06:06→22:27)
[2017-10-30] MEDS: INSULIN LISPRO 100 UNIT/1 ML 3ML VIAL SQ SCH ×4 (07:30→20:56)
[2017-10-30 08:00] VITALS: BP 109/69
[2017-10-30] MEDS: NIFEDIPINE CR 30 MG TAB PO SCH ×2 (09:00→16:48)
[2017-10-30] MEDS: ASPIRIN 81 MG CHEW TAB PO SCH (09:29)
[2017-10-30] MEDS: NYSTATIN 15 GM POWDER UD BTL TOP SCH ×2 (09:30→16:48)
[2017-10-30] MEDS: HEPARIN SOD (PORCINE) 5,000 UNIT/ML VIAL SC SCH ×2 (09:30→22:28)
[2017-10-30] MEDS ORDERED: LACTULOSE SYRUP 20 GM/30 ML UDC PO ONE (09:45)
[2017-10-30 12:01] VITALS: BP 126/72
[2017-10-30 16:41] VITALS: BP 116/72
[2017-10-30 20:00] VITALS: BP 149/81
[2017-10-30] MEDS: ACETAMINOPHEN/CODEINE 300MG - 30MG TAB PO PRN (22:52)
[2017-10-31] VITALS: BP 134/79
[2017-10-31 04:00] VITALS: BP 110/59
[2017-10-31] MEDS: BUMETANIDE INJ 0.25MG/ML 4ML VIAL IV SCH ×3 (06:45→21:59)
[2017-10-31] MEDS: INSULIN LISPRO 100 UNIT/1 ML 3ML VIAL SQ SCH ×4 (07:30→20:28)
[2017-10-31] MEDS: ALBUTEROL/IPRATROPIUM 3 ML NEB NEB SCH ×3 (07:55→23:35)
[2017-10-31 08:21] VITALS: BP 135/77
[2017-10-31] MEDS: ASPIRIN 81 MG CHEW TAB PO SCH (09:09)
[2017-10-31] MEDS: NYSTATIN 15 GM POWDER UD BTL TOP SCH ×2 (09:09→17:02)
[2017-10-31] MEDS: HEPARIN SOD (PORCINE) 5,000 UNIT/ML VIAL SC SCH (09:09)
[2017-10-31] MEDS: NIFEDIPINE CR 30 MG TAB PO SCH ×2 (09:09→17:02)
[2017-10-31 12:51] VITALS: BP 130/72
[2017-10-31 16:43] VITALS: BP 143/75
[2017-10-31 20:01] VITALS: BP 125/98
[2017-11-01 00:18] VITALS: BP 127/71
[2017-11-01 04:45] VITALS: BP 105/51
[2017-11-01] MEDS: BUMETANIDE INJ 0.25MG/ML 4ML VIAL IV SCH ×3 (06:40→21:58)
[2017-11-01] MEDS: INSULIN LISPRO 100 UNIT/1 ML 3ML VIAL SQ SCH ×4 (07:30→21:00)
[2017-11-01] MEDS: ALBUTEROL/IPRATROPIUM 3 ML NEB NEB SCH ×3 (07:45→23:00)
[2017-11-01 08:35] VITALS: BP 109/56
[2017-11-01] MEDS: NIFEDIPINE CR 30 MG TAB PO SCH ×2 (08:47→16:44)
[2017-11-01] MEDS: ASPIRIN 81 MG CHEW TAB PO SCH (08:47)
[2017-11-01] MEDS: NYSTATIN 15 GM POWDER UD BTL TOP SCH ×2 (08:47→17:09)
[2017-11-01 12:48] VITALS: BP 138/84
[2017-11-01 16:00] VITALS: BP 133/3
[2017-11-01 20:00] VITALS: BP 133/83
[2017-11-02] VITALS (7 sets, daily range): BP systolic 116–140; BP diastolic 70–81
[2017-11-02] MEDS: BUMETANIDE INJ 0.25MG/ML 4ML VIAL IV SCH ×2 (06:12→14:00)
[2017-11-02] MEDS: ALBUTEROL/IPRATROPIUM 3 ML NEB NEB SCH ×3 (07:15→21:30)
[2017-11-02] MEDS: INSULIN LISPRO 100 UNIT/1 ML 3ML VIAL SQ SCH ×4 (07:30→20:58)
[2017-11-02] MEDS: NIFEDIPINE CR 30 MG TAB PO SCH ×2 (08:43→17:34)
[2017-11-02] MEDS: ASPIRIN 81 MG CHEW TAB PO SCH (08:43)
--- NOTE | 2017-11-02 08:49 | Progress Note ---
DATE: November 01, 2017 Ms. Glez continues to do well. She has no new complaints. PHYSICAL EXAMINATION GENERAL: She is alert and oriented. Does not seem to be in acute distress. VITALS: Currently afebrile. HEENT: Nonicteric. CHEST: Clear. HEART: S1 and S2. ABDOMEN: Soft. IMPRESSION 1. Fever. 2. Pneumonia: Seems to be better. To finish 8 days of antibiotics. 3. History of positive transient ischemic attack. 4. Negative RPR, treated. Old which was treated. 5. Anemia of chronic disease. 6. Chronic kidney disease. 7. Hypertension. Stable from infectious disease. Discharge plan per internal medicine. Job#: [id number] SORAYA
[2017-11-02] MEDS: NYSTATIN 15 GM POWDER UD BTL TOP SCH ×4 (09:00→21:00)
[2017-11-02 10:35] LABS: BASOPHILS % 0.2 % (0.0-1.0); EOSINOPHILS # (AUTO) 0.1 (0.0-0.4); EOSINOPHILS % 3.2 % (0.0-6.0); HEMATOCRIT 26.7 % (34.2-44.1); HEMOGLOBIN 8.3 g/dL (12.0-16.0); LYMPHOCYTES # (AUTO) 0.9 (1.0-3.2); MEAN CORPUSCULAR HEMOGLOBIN 27.8 pg (28-32); MEAN CORPUSCULAR HGB CONC 31.1 g/dL (31-35); MEAN CORPUSCULAR VOLUME 89.3 fL (81-99); MONOCYTES # (AUTO) 0.2 (0.2-0.8); MONOCYTES % 4.7 % (4.4-11.3); NEUTROPHILS # (AUTO) 2.8 (2.1-6.9); NEUTROPHILS % 68.7 % (38.7-80.0); PLATELET COUNT 238 x10e3/uL (140-360); RED BLOOD COUNT 2.99 x10e6/uL (3.6-5.1); RED CELL DISTRIBUTION WIDTH 13.5 % (11.7-14.4)
[2017-11-02 14:55] LABS: ANION GAP 15.2 mmol/L (8-16); CALCIUM 9.2 mg/dL (8.4-10.2); CREATININE, SERUM 3.1 mg/dL (0.57-1.11); POTASSIUM 3.2 mmol/L (3.5-5.1)
--- NOTE | 2017-11-02 16:59 | Diagnostic Imaging Report ---
PROCEDURE:TUNNELED DIALYSIS CATHETER COMPARISON:None. INDICATIONS: End-stage renal disease. COMPLICATIONS: None. MEDICATIONS: None. BLOOD LOSS: None. PROCEDURE: Focus sonographic evaluation of the right neck demonstrated a patent compressible right internal jugular vein. The right neck and upper chest were prepped and draped in the usual sterile fashion. 1% lidocaine was infused into the subcutaneous tissues for local anesthesia. Utilizing direct sonographic guidance, a 21 gauge needle was advanced into the right internal jugular vein. The wire was advanced centrally utilizing fluoroscopic guidance. An access sheath was placed over the wire to secure the vascular access. The wire was upsized to a 0.035 inch wire. The wire was advanced into the inferior vena cava for stability. One percent lidocaine was infused into the subcutaneous tissues along the right upper chest wall. A skin cherelle was made with a #11 blade. The catheter was tunneled to the skin thickening out the venous access site. Serial dilations were performed over the wire. A peel-away sheath was placed over the wire. The wire and stylet were removed. The catheter was placed within the sheath and the peel-away sheath was removed. The catheter tip was positioned within the right atrium. The catheter demonstrated proper function with aspiration and flushing of saline. The catheter lumens were flushed with sterile saline. The catheter was secured to the skin with 3-0 Ethilon suture. The right neck venous access site was closed with 4-0 Vicryl suture and Dermabond. Sterile dressings were applied. There were no immediate complications. The patient tolerated the procedure well. The patient was transferred to the post procedure area in stable unchanged condition for further monitoring. CONCLUSION: Successful placement of a right internal jugular tunneled central venous catheter utilizing fluoroscopic and ultrasound guidance. Dictated by: Ryder Conde M.D. on 11/02/2017 at 17:06 Electronically approved by: Ryder Conde M.D. on 11/02/2017 at 17:06
[2017-11-02] MEDS: FUROSEMIDE 40 MG TAB PO SCH (17:34)
[2017-11-03] VITALS: BP 144/75
[2017-11-03 04:00] VITALS: BP 134/64
[2017-11-03] MEDS: FUROSEMIDE 40 MG TAB PO SCH ×2 (05:45→17:48)
[2017-11-03] MEDS: INSULIN LISPRO 100 UNIT/1 ML 3ML VIAL SQ SCH ×3 (07:30→16:30)
[2017-11-03 07:42] VITALS: BP 143/75
[2017-11-03] MEDS: ALBUTEROL/IPRATROPIUM 3 ML NEB NEB SCH ×2 (07:45→15:00)
[2017-11-03] MEDS: NIFEDIPINE CR 30 MG TAB PO SCH ×2 (09:54→17:48)
[2017-11-03] MEDS: ASPIRIN 81 MG CHEW TAB PO SCH (09:54)
[2017-11-03] MEDS: NYSTATIN 15 GM POWDER UD BTL TOP SCH ×2 (09:54)
[2017-11-03 16:33] VITALS: BP 142/73
[2017-11-03] MEDS ORDERED: ASPIRIN81 MG PO (17:30)
[2017-11-03] MEDS ORDERED: PROCARDIA XL30 MG PO (17:31)
--- NOTE | 2017-11-03 17:41 | Discharge Summary ---
FINAL DIAGNOSIS: Pneumonia. SECONDARY DIAGNOSES 1. Newly diagnosed end-stage renal disease due to diabetes. 2. Hypertension. 3. Volume overload, resolved. 4. Anemia, stable. 5. Diabetes, stable. 6. Old left bundle branch block. 7. Bipolar disorder. CONSULTANTS: 1. Dr. Bell, pulmonology. 2. Dr. Pierce, nephrology. 3. Dr. Musa, infectious disease. HISTORY: Per History and Physical. HOSPITAL COURSE: The patient was admitted for her pneumonia. The patient underwent a course of IV antibiotics per Dr. Musa. As far as her volume overload, the patient was on IV Bumex. A tunneled catheter was put in with dialysis initiation performed by Dr. Pierce. Her left arm AV fistula has not matured yet, even though it was placed last year. The patient's dialysis days are Thursday, Thursday and Thursday at [facility]. As far as her uncontrolled hypertension, Nifedipine was added, and this got better. The patient also has FTA antibody positive and given the fact that her RPR is negative, no treatment is necessary per infectious disease doctor. CONDITION ON DISCHARGE: Stable. DISCHARGE MEDICATIONS: Please see medication reconciliation form. I took 35 minutes total to discharge this patient today. ARPIT MARTINO M.D. Job#: [id number]
== END 2017-11-03 17:54 | disposition home or self-care (01) | DRG 193 ==
LOC: ER 12:33 → ERHOLD 15:42 → MED/SURG 18:42
PROVIDERS: ADMIT Internal Medicine; ATTEND Internal Medicine
PROC: 5A1D70Z Performance of Urinary Filtration, Intermittent, Less than 6 Hours Per Day (ICD-10-PCS; principal; 2017-10-26)
PROC: 02HV33Z Insertion of Infusion Device into Superior Vena Cava, Percutaneous Approach (ICD-10-PCS; 2017-11-02)
PROC: B548ZZA Ultrasonography of Superior Vena Cava, Guidance (ICD-10-PCS; 2017-11-02)
DX: J18.9 Pneumonia, unspecified organism (principal); N18.6 End stage renal disease; N17.9 Acute kidney failure, unspecified; E87.2 Acidosis; D89.0 Polyclonal hypergammaglobulinemia; I50.22 Chronic systolic (congestive) heart failure; I13.0 Hypertensive heart and chronic kidney disease with heart failure and stage 1 through stage 4 chronic kidney disease, or unspecified chronic kidney disease; A53.9 Syphilis, unspecified; E11.22 Type 2 diabetes mellitus with diabetic chronic kidney disease; E11.65 Type 2 diabetes mellitus with hyperglycemia; Z99.2 Dependence on renal dialysis; E66.9 Obesity, unspecified; Z68.37 Body mass index [BMI] 37.0-37.9, adult; E86.0 Dehydration; J44.9 Chronic obstructive pulmonary disease, unspecified; E87.6 Hypokalemia; Z87.891 Personal history of nicotine dependence; I69.398 Other sequelae of cerebral infarction; D63.1 Anemia in chronic kidney disease; K59.00 Constipation, unspecified; Z88.0 Allergy status to penicillin
CPT/HCPCS: 36415; 36565; 71010; 71250; 74470; 77001; 80048; 80053; 81001; 81025; 81050; 82150; 82550; 82553; 82570; 82575; 82948; 83036; 83690; 83735; 83880; 84100; 84156; 84443; 84484; 85025; 85610; 85730; 86021; 86592; 86704; 86705; 86706; 86780; 87040; 87070; 87205; 87340; 87390; 87400; 87449; 90962; 93005; 94640; G0433; G0435; J0360; J0696; J1644; J1940; J2001; J2150; J2250; J7030; J7040

== ENCOUNTER 2018-01-09 17:50 | Emergency (ER) | payer OTHER ==
[~2018-01-09] VITALS: Ht 160 cm; Wt 93.0 kg
[~2018-01-09 17:50] MED LIST changes: +ASPIRIN81 MG PO; +PROCARDIA XL30 MG PO
--- OUTSIDE RECORDS SUMMARY | 2018-01-09 17:53 | XMS REPORT ---
Author Author [facility] Address Unknown Phone Unavailable Care Team Providers Care Stroboroma Operator Name Role Phone UNKNOWN, REFFERING PP Unavailable MARTINO, YICHING Unavailable Unavailable BADAR, DIEGO Unavailable Unavailable PAM, BENITO Unavailable Unavailable Problems This patient has no known problems. Allergies, Adverse Reactions, Alerts This patient has no known allergies or adverse reactions. Medications This patient has no known medications. Results Test Description Test Time Test Comments Text Results Atomic Results Result Comments POC Glucose, Blood 2017-06-04 07:41:00 POC Glucose (test code=POCGLUC) 126 mg/dL 70-115 If you consider your patient critically ill, the Karthikeyan Accu-Chek InformII metershould not be used for Glucose determinations.Draw a venous Glucose and send to the Main Lab for Analysis. Basic Metabolic [id number] 07:28:00* Test Item Value Reference Range Comments Sodium (test code=NA) 139 mmol/L 135-145 Potassium (test code=K) 3.9 mmol/L 3.5-5.1 Chloride (test code=CL) 103 mmol/L 98-105 Carbon Dioxide (test code=CO2) 18 mmol/L 22-29 Glucose (test code=GLU) 127 mg/dL 70-115 Blood Urea Nitrogen (test code=BUN) 59 mg/dL 6-20 Creatinine (test code=CREAT) 3.3 mg/dL 0.5-0.9 Calcium (test code=CA) 9.1 mg/dL 8.3-10.5 BUN/Creatinine Ratio (test code=BCRATIO) 17.9 Anion Gap (test code=AGAP) 18 mmol/L 7-16 Estimated GFR (test code=GFR) 19 mL/min/1.73m2 eGFR (estimated Glomerular Filtration Rate) is an estimated value,calculated from the patient's serum creatinine using the MDRD equation.It is NOT the patient's actual GFR. The eGFR provides a more clinicallyuseful measure of kidney disease than serum creatinine alone.This calculation takes sex and race into account, if the informationis provided. If the race is not provided, and the patient isAfrican- Cym[place], multiply by 1.212. If sex is not provided, and thepatient is female, multiply by 0.742. Results for patients <18 years ofage have not been validated by the MDRD study and should be interpretedwith caution.eGFR Result Interpretation:eGFR > or=60 is in the Normal RangeeGFR < 60 may mean kidney diseaseeGFR < 15 may mean kidney failureRanges recommended by the National Kidney Foundation,http://nkdep.nih.gov [id number] 07:28:00* Test Item Value Reference Range Comments NT ProBnp (test code=PBNP) 81344 pg/mL 0-124 POC Glucose, [id number] 20:09:00* Test Item Value Reference Range Comments POC Glucose (test code=POCGLUC) 209 mg/dL 70-115 Notify RN or MDIf you consider your patient critically ill, the Karthikeyan Accu-Chek InformII metershould not be used for Glucose determinations.Draw a venous Glucose and send to the Main Lab for Analysis. POC Glucose, [id number] 15:46:00* Test Item Value Reference Range Comments POC Glucose (test code=POCGLUC) 117 mg/dL 70-115 If you consider your patient critically ill, the Karthikeyan Accu-Chek InformII metershould not be used for Glucose determinations.Draw a venous Glucose and send to the Main Lab for Analysis. POC Glucose, [id number] 12:30:00* Test Item Value Reference Range Comments POC Glucose (test code=POCGLUC) 156 mg/dL 70-115 If you consider your patient critically ill, the Karthikeyan Accu-Chek InformII metershould not be used for Glucose determinations.Draw a venous Glucose and send to the Main Lab for Analysis. POC Glucose, [id number] 07:56:00* Test Item Value Reference Range Comments POC Glucose (test code=POCGLUC) 134 mg/dL 70-115 If you consider your patient critically ill, the Karthikeyan Accu-Chek InformII metershould not be used for Glucose determinations.Draw a venous Glucose and send to the Main Lab for Analysis. Basic Metabolic [id number] 06:25:00* Test Item Value Reference Range Comments Sodium (test code=NA) 141 mmol/L 135-145 Potassium (test code=K) 3.7 mmol/L 3.5-5.1 Chloride (test code=CL) 106 mmol/L 98-105 Carbon Dioxide (test code=CO2) 19 mmol/L 22-29 Glucose (test code=GLU) 98 mg/dL 70-115 Blood Urea Nitrogen (test code=BUN) 60 mg/dL 6-20 Creatinine (test code=CREAT) 3.6 mg/dL 0.5-0.9 Calcium (test code=CA) 8.5 mg/dL 8.3-10.5 BUN/Creatinine Ratio (test code=BCRATIO) 16.7 Anion Gap (test code=AGAP) 16 mmol/L 7-16 Estimated GFR (test code=GFR) 17 mL/min/1.73m2 eGFR (estimated Glomerular Filtration Rate) is an estimated value,calculated from the patient's serum creatinine using the MDRD equation.It is NOT the patient's actual GFR. The eGFR provides a more clinicallyuseful measure of kidney disease than serum creatinine alone.This calculation takes sex and race into account, if the informationis provided. If the race is not provided, and the patient isAfrican- Cym[place], multiply by 1.212. If sex is not provided, and thepatient is female, multiply by 0.742. Results for patients <18 years ofage have not been validated by the MDRD study and should be interpretedwith caution.eGFR Result Interpretation:eGFR > or=60 is in the Normal RangeeGFR < 60 may mean kidney diseaseeGFR < 15 may mean kidney failureRanges recommended by the National Kidney Foundation,http://nkdep.nih.gov POC Glucose, [id number] 20:34:00* Test Item Value Reference Range Comments POC Glucose (test code=POCGLUC) 97 mg/dL 70-115 Notify RN or MDIf you consider your patient critically ill, the Karthikeyan Accu-Chek InformII metershould not be used for Glucose determinations.Draw a venous Glucose and send to the Main Lab for Analysis. POC Glucose, [id number] 17:52:00* Test Item Value Reference Range Comments POC Glucose (test code=POCGLUC) 100 mg/dL 70-115 If you consider your patient critically ill, the Karthikeyan Accu-Chek InformII metershould not be used for Glucose determinations.Draw a venous Glucose and send to the Main Lab for Analysis. POC Glucose, [id number] 12:08:00* Test Item Value Reference Range Comments POC Glucose (test code=POCGLUC) 69 mg/dL 70-115 If you consider your patient critically ill, the Karthikeyan Accu-Chek InformII metershould not be used for Glucose determinations.Draw a venous Glucose and send to the Main Lab for Analysis. POC Glucose, [id number] 08:03:00* Test Item Value Reference Range Comments POC Glucose (test code=POCGLUC) 158 mg/dL 70-115 If you consider your patient critically ill, the Karthikeyan Accu-Chek InformII metershould not be used for Glucose determinations.Draw a venous Glucose and send to the Main Lab for Analysis. [id number] 07:57:00* Test Item Value Reference Range Comments NT ProBnp (test code=PBNP) 98213 pg/mL 0-124 Basic Metabolic [id number] 07:57:00* Test Item Value Reference Range Comments Sodium (test code=NA) 138 mmol/L 135-145 Potassium (test code=K) 4.2 mmol/L 3.5-5.1 Chloride (test code=CL) 104 mmol/L 98-105 Carbon Dioxide (test code=CO2) 17 mmol/L 22-29 Glucose (test code=GLU) 129 mg/dL 70-115 Blood Urea Nitrogen (test code=BUN) 62 mg/dL 6-20 Creatinine (test code=CREAT) 3.8 mg/dL 0.5-0.9 Calcium (test code=CA) 8.4 mg/dL 8.3-10.5 BUN/Creatinine Ratio (test code=BCRATIO) 16.3 Anion Gap (test code=AGAP) 17 mmol/L 7-16 Estimated GFR (test code=GFR) 16 mL/min/1.73m2 eGFR (estimated Glomerular Filtration Rate) is an estimated value,calculated from the patient's serum creatinine using the MDRD equation.It is NOT the patient's actual GFR. The eGFR provides a more clinicallyuseful measure of kidney disease than serum creatinine alone.This calculation takes sex and race into account, if the informationis provided. If the race is not provided, and the patient isAfrican- Cym[place], multiply by 1.212. If sex is not provided, and thepatient is female, multiply by 0.742. Results for patients <18 years ofage have not been validated by the MDRD study and should be interpretedwith caution.eGFR Result Interpretation:eGFR > or=60 is in the Normal RangeeGFR < 60 may mean kidney diseaseeGFR < 15 may mean kidney failureRanges recommended by the National Kidney Foundation,http://nkdep.nih.gov POC Glucose, [id number] 20:03:00* Test Item Value Reference Range Comments POC Glucose (test code=POCGLUC) 214 mg/dL 70-115 If you consider your patient critically ill, the Karthikeyan Accu-Chek InformII metershould not be used for Glucose determinations.Draw a venous Glucose and send to the Main Lab for Analysis. POC Glucose, [id number] 16:12:00* Test Item Value Reference Range Comments POC Glucose (test code=POCGLUC) 129 mg/dL 70-115 If you consider your patient critically ill, the Karthikeyan Accu-Chek InformII metershould not be used for Glucose determinations.Draw a venous Glucose and send to the Main Lab for Analysis. Basic Metabolic [id number] 08:24:00* Test Item Value Reference Range Comments Sodium (test code=NA) 138 mmol/L 135-145 Potassium (test code=K) 4.1 mmol/L 3.5-5.1 Chloride (test code=CL) 102 mmol/L 98-105 Carbon Dioxide (test code=CO2) 19 mmol/L 22-29 Glucose (test code=GLU) 143 mg/dL 70-115 Blood Urea Nitrogen (test code=BUN) 53 mg/dL 6-20 Creatinine (test code=CREAT) 3.9 mg/dL 0.5-0.9 Calcium (test code=CA) 8.6 mg/dL 8.3-10.5 BUN/Creatinine Ratio (test code=BCRATIO) 13.6 Anion Gap (test code=AGAP) 17 mmol/L 7-16 Estimated GFR (test code=GFR) 16 mL/min/1.73m2 eGFR (estimated Glomerular Filtration Rate) is an estimated value,calculated from the patient's serum creatinine using the MDRD equation.It is NOT the patient's actual GFR. The eGFR provides a more clinicallyuseful measure of kidney disease than serum creatinine alone.This calculation takes sex and race into account, if the informationis provided. If the race is not provided, and the patient isAfrican- Cym[place], multiply by 1.212. If sex is not provided, and thepatient is female, multiply by 0.742. Results for patients <18 years ofage have not been validated by the MDRD study and should be interpretedwith caution.eGFR Result Interpretation:eGFR > or=60 is in the Normal RangeeGFR < 60 may mean kidney diseaseeGFR < 15 may mean kidney failureRanges recommended by the National Kidney Foundation,http://nkdep.nih.gov POC Glucose, [id number] 21:24:00* Test Item Value Reference Range Comments POC Glucose (test code=POCGLUC) 151 mg/dL 70-115 If you consider your patient critically ill, the Karthikeyan Accu-Chek InformII metershould not be used for Glucose determinations.Draw a venous Glucose and send to the Main Lab for Analysis. POC Glucose, [id number] 16:24:00* Test Item Value Reference Range Comments POC Glucose (test code=POCGLUC) 117 mg/dL 70-115 Notify RN or MDIf you consider your patient critically ill, the Karthikeyan Accu-Chek InformII metershould not be used for Glucose determinations.Draw a venous Glucose and send to the Main Lab for Analysis. POC Glucose, [id number] 11:43:00* Test Item Value Reference Range Comments POC Glucose (test code=POCGLUC) 170 mg/dL 70-115 Notify RN or MDIf you consider your patient critically ill, the Karthikeyan Accu-Chek InformII metershould not be used for Glucose determinations.Draw a venous Glucose and send to the Main Lab for Analysis. POC Glucose, [id number] 07:42:00* Test Item Value Reference Range Comments POC Glucose (test code=POCGLUC) 141 mg/dL 70-115 Notify RN or MDIf you consider your patient critically ill, the Karthikeyan Accu-Chek InformII metershould not be used for Glucose determinations.Draw a venous Glucose and send to the Main Lab for Analysis. Basic Metabolic [id number] 05:39:00* Test Item Value Reference Range Comments Sodium (test code=NA) 138 mmol/L 135-145 Potassium (test code=K) 4.2 mmol/L 3.5-5.1 Chloride (test code=CL) 108 mmol/L 98-105 Carbon Dioxide (test code=CO2) 17 mmol/L 22-29 Glucose (test code=GLU) 175 mg/dL 70-115 Blood Urea Nitrogen (test code=BUN) 46 mg/dL 6-20 Creatinine (test code=CREAT) 3.4 mg/dL 0.5-0.9 Calcium (test code=CA) 8.5 mg/dL 8.3-10.5 BUN/Creatinine Ratio (test code=BCRATIO) 13.5 Anion Gap (test code=AGAP) 13 mmol/L 7-16 Estimated GFR (test code=GFR) 18 mL/min/1.73m2 eGFR (estimated Glomerular Filtration Rate) is an estimated value,calculated from the patient's serum creatinine using the MDRD equation.It is NOT the patient's actual GFR. The eGFR provides a more clinicallyuseful measure of kidney disease than serum creatinine alone.This calculation takes sex and race into account, if the informationis provided. If the race is not provided, and the patient isAfrican- [place]ym[place], multiply by 1.212. If sex is not provided, and thepatient is female, multiply by 0.742. Results for patients <18 years ofage have not been validated by the MDRD study and should be interpretedwith caution.eGFR Result Interpretation:eGFR > or=60 is in the Normal RangeeGFR < 60 may mean kidney diseaseeGFR < 15 may mean kidney failureRanges recommended by the National Kidney Foundation,http://nkdep.nih.gov [id number] 05:37:00* Test Item Value Reference Range Comments NT ProBnp (test code=PBNP) 45224 pg/mL 0-124 CBC with [id number] 05:22:00* Test Item Value Reference Range Comments WBC (test code=WBC) 3.2 K/cumm 4.4-10.5 RBC (test code=RBC) 2.94 M/cumm 3.75-5.20 Hemoglobin (test code=HGB) 8.0 gm/dL 12.2-14.8 Hematocrit (test code=HCT) 27.3 % 36.5-44.4 MCV (test code=MCV) 92.9 fL 80-100 MCH (test code=MCH) 27.1 pg 27.0-32.5 MCHC (test code=MCHC) 29.1 g/dL 32.0-37.5 RDW (test code=RDW) 15.1 % 11.5-14.5 Platelet Count (test code=PLTCT) 191 K/cumm 140-440 MPV (test code=MPV) 12.0 fL Diff Method (test code=DIFFM) Auto Neutrophil (test code=NEUT) 81.2 % 36-70 Lymphocyte (test code=LYMPH) 13.8 % 12-44 Monocyte (test code=MONO) 2.9 % 0-11 Eosinophil (test code=EOS) 1.8 % 0-7 Basophil (test code=BASO) 0.3 % 0-2 Neutro Abs (test code=ANEUT) 2.6 K/cumm 1.6-7.4 Lymph Abs (test code=ALYMPH) 0.4 K/cumm 0.5-4.6 [place] Abs (test code=AMONO) 0.1 K/cumm 0.0-1.2 Eos Abs (test code=AEOS) 0.06 K/cumm 0.00-0.74 Baso Abs (test code=ABASO) 0.0 K/cumm 0.00-0.21 Hypochromic (test code=HYPO) Moderate POC Glucose, [id number] 20:48:00* Test Item Value Reference Range Comments POC Glucose (test code=POCGLUC) 209 mg/dL 70-115 If you consider your patient critically ill, the Karthikeyan Accu-Chek InformII metershould not be used for Glucose determinations.Draw a venous Glucose and send to the Main Lab for Analysis. POC Glucose, [id number] 16:18:00* Test Item Value Reference Range Comments POC Glucose (test code=POCGLUC) 163 mg/dL 70-115 Notify RN or MDIf you consider your patient critically ill, the Karthikeyan Accu-Chek InformII metershould not be used for Glucose determinations.Draw a venous Glucose and send to the Main Lab for Analysis. POC Glucose, [id number] 11:48:00* Test Item Value Reference Range Comments POC Glucose (test code=POCGLUC) 146 mg/dL 70-115 Notify RN or MDIf you consider your patient critically ill, the Karthikeyan Accu-Chek InformII metershould not be used for Glucose determinations.Draw a venous Glucose and send to the Main Lab for Analysis. POC Glucose, [id number] 07:08:00* Test Item Value Reference Range Comments POC Glucose (test code=POCGLUC) 154 mg/dL 70-115 If you consider your patient critically ill, the Karthikeyan Accu-Chek InformII metershould not be used for Glucose determinations.Draw a venous Glucose and send to the Main Lab for Analysis. POC Glucose, [id number] 20:09:00* Test Item Value Reference Range Comments POC Glucose (test code=POCGLUC) 184 mg/dL 70-115 If you consider your patient critically ill, the Karthikeyan Accu-Chek InformII metershould not be used for Glucose determinations.Draw a venous Glucose and send to the Main Lab for Analysis. POC Glucose, [id number] 16:31:00* Test Item Value Reference Range Comments POC Glucose (test code=POCGLUC) 180 mg/dL 70-115 Notify RN or MDIf you consider your patient critically ill, the Karthikeyan Accu-Chek InformII metershould not be used for Glucose determinations.Draw a venous Glucose and send to the Main Lab for Analysis. POC Glucose, [id number] 11:28:00* Test Item Value Reference Range Comments POC Glucose (test code=POCGLUC) 150 mg/dL 70-115 Notify RN or MDIf you consider your patient critically ill, the Karthikeyan Accu-Chek InformII metershould not be used for Glucose determinations.Draw a venous Glucose and send to the Main Lab for Analysis. POC Glucose, [id number] 09:21:00* Test Item Value Reference Range Comments POC Glucose (test code=POCGLUC) 122 mg/dL 70-115 If you consider your patient critically ill, the Karthikeyan Accu-Chek InformII metershould not be used for Glucose determinations.Draw a venous Glucose and send to the Main Lab for Analysis. Troponin [id number] 04:38:00* Test Item Value Reference Range Comments Troponin T (test code=ETHAN) 0.056 ng/mL 0.000-0.090 Comprehensive Metabolic [id number] 04:38:00* Test Item Value Reference Range Comments Sodium (test code=NA) 140 mmol/L 135-145 Potassium (test code=K) 3.5 mmol/L 3.5-5.1 Chloride (test code=CL) 105 mmol/L 98-105 Carbon Dioxide (test code=CO2) 20 mmol/L 22-29 Glucose (test code=GLU) 103 mg/dL 70-115 Blood Urea Nitrogen (test code=BUN) 27 mg/dL 6-20 Creatinine (test code=CREAT) 3.4 mg/dL 0.5-0.9 Calcium (test code=CA) 8.9 mg/dL 8.3-10.5 Prot Total (test code=TP) 7.2 g/dL 6.4-8.3 Albumin (test code=ALB) 4.1 g/dL 3.5-5.2 A/G Ratio (test code=AGRATIO) 1.3 Ratio Globulin (test code=GLOB) 3.1 2.9-3.1 Bili Total (test code=TBIL) 0.5 mg/dL 0.1-0.9 Alk Phos (test code=APHOS) 91 U/L 35-104 AST (test code=AST) 8 U/L 1-32 ALT (test code=ALT) 9 U/L 1-33 BUN/Creatinine Ratio (test code=BCRATIO) 7.9 Anion Gap (test code=AGAP) 15 mmol/L 7-16 Estimated GFR (test code=GFR) 18 mL/min/1.73m2 eGFR (estimated Glomerular Filtration Rate) is an estimated value,calculated from the patient's serum creatinine using the MDRD equation.It is NOT the patient's actual GFR. The eGFR provides a more clinicallyuseful measure of kidney disease than serum creatinine alone.This calculation takes sex and race into account, if the informationis provided. If the race is not provided, and the patient isAfrican- [place]ym[place], multiply by 1.212. If sex is not provided, and thepatient is female, multiply by 0.742. Results for patients <18 years ofage have not been validated by the MDRD study and should be interpretedwith caution.eGFR Result Interpretation:eGFR > or=60 is in the Normal RangeeGFR < 60 may mean kidney diseaseeGFR < 15 may mean kidney failureRanges recommended by the National Kidney Foundation,http://nkdep.nih.gov CBC with [id number] 03:44:00* Test Item Value Reference Range Comments WBC (test code=WBC) 4.4 K/cumm 4.4-10.5 RBC (test code=RBC) 2.98 M/cumm 3.75-5.20 Hemoglobin (test code=HGB) 8.1 gm/dL 12.2-14.8 Hematocrit (test code=HCT) 26.5 % 36.5-44.4 MCV (test code=MCV) 89.0 fL 80-100 MCH (test code=MCH) 27.3 pg 27.0-32.5 MCHC (test code=MCHC) 30.7 g/dL 32.0-37.5 RDW (test code=RDW) 15.2 % 11.5-14.5 Platelet Count (test code=PLTCT) 164 K/cumm 140-440 MPV (test code=MPV) 9.7 fL Diff Method (test code=DIFFM) Auto Neutrophil (test code=NEUT) 74.2 % 36-70 Lymphocyte (test code=LYMPH) 11.7 % 12-44 Monocyte (test code=MONO) 11.5 % 0-11 Eosinophil (test code=EOS) 2.3 % 0-7 Basophil (test code=BASO) 0.4 % 0-2 Neutro Abs (test code=ANEUT) 3.2 K/cumm 1.6-7.4 Lymph Abs (test code=ALYMPH) 0.5 K/cumm 0.5-4.6 [place] Abs (test code=AMONO) 0.5 K/cumm 0.0-1.2 Eos Abs (test code=AEOS) 0.10 K/cumm 0.00-0.74 Baso Abs (test code=ABASO) 0.0 K/cumm 0.00-0.21 Hypochromic (test code=HYPO) Slight POC Glucose, [id number] 02:35:00* Test Item Value Reference Range Comments POC Glucose (test code=POCGLUC) 94 mg/dL 70-115 Notify RN or MDIf you consider your patient critically ill, the Karthikeyan Accu-Chek InformII metershould not be used for Glucose determinations.Draw a venous Glucose and send to the Main Lab for Analysis. Urinalysis [id number] 07:56:00* Test Item Value Reference Range Comments Color (test code=COLOR) Yellow Yellow,Straw,Pl yellow Clarity (test code=CLAR) Sl Cloudy Clear Specific [place] (test code=SPGR) 1.012 1.001-1.035 pH (test code=PH) 5.0 5.0-9.0 Ketone (test code=KET) Negative mg/dL Negative Glucose (test code=GLUCUR) Negative mg/dL Negative Protein (test code=PROT) 150 mg/dL Negative Bilirubin (test code=BILI) Negative mg/dL Negative Occult Blood (test code=UDOB) Negative Negative Urobilinogen (test code=UROB) 0.2 mg/dL 0.2-1.0 Nitrite (test code=NIT) Negative Negative Leuk Esterase (test code=LEUK) Large Negative Micros Exam (test code=MEXAM) Indicated Epithelial Cells (test code=EPI) 6-9 /LPF 0-30 WBC, Urine (test code=UWBC) 10-14 /HPF 0-5 RBC, Urine (test code=URBC) 0-3 /HPF 0-5 Bacteria (test code=BACT) Few /HPF IR CONSULT [place] [address] Patient Name: GIOVANA THORNE MR #: [id number] : 1965 Age/Sex: 52/F Req #: [id number] Adm Physician: ARPIT MARTINO MD Ordered by: ERIN CARVAJAL, JAZMINE CARVAJAL Report #: [id number] Location: MED/SURG Room/Bed: [facility] _ Procedure: [id number] DX/IR CONSULT Exam Date: Exam Time: REPORT STATUS: Signed PROCEDURE: TUNNELED DIALYSIS CATHETER COMPARISON: None. INDICATIONS: End-stage renal disease. COMPLICATIONS: None. MEDICATIONS: None. BLOOD LOSS: None. PROCEDURE : Focus sonographic evaluation of the right neck demonstrated a patent compressible right internal jugular vein. The right neck and upper chest were prepped and draped in the usual sterile fashion. 1% lidocaine was infused into the subcutaneous tissues for local anesthesia. Utilizing direct sonographic guidance, a 21 gauge needle was advanced into the right internal jugular vein. The wire was advanced centrally utilizing fluoroscopic guidance. An access sheath was placed over the wire to secure the vascular access. The wire was upsized to a 0.035 inch wire. The wire was advanced into the inferior vena cava for stability. One percent lidocaine was infused into the subcutaneous tissues along the right upper chest wall. A skin cherelle was made with a #11 blade. The catheter was tunneled to the skin thickening out the venous access site. Serial dilations were performed over the wire. A peel-away sheath was placed over the wire. The wire and stylet were removed. The catheter was placed within the sheath and the peel-away sheath was removed. The catheter tip was positioned within the right atrium. The catheter demonstrated proper function with aspiration and flushing of saline. The catheter lumens were flushed with sterile saline. The catheter was secured to the skin with 3-0 Ethilon suture. The right neck venous access site was closed with 4-0 Vicryl suture and Dermabond. Sterile dressings were applied. There were no immediate complications. The patient tolerated the procedure well. The patient was transferred to the post procedure area in stable unchanged condition for further monitoring. CONCLUSION: Successful placement of a right internal jugular tunneled central venous catheter utilizing fluoroscopic and ultrasound guidance. Dictated by: Libby Muir M.D. on 11/02/2017 at 17:06 Electronically approved by: Libby Muir M.D. on 11/02/2017 at 17:06 Dictated By: LIBBY MUIR MD 05 COPY TO: JAZMINE KHAN SPECIAL PROCEDURE IN INTELLIGENCE SUPPORT OFFICER [place] [address] Patient Name: GIOVANA THORNE MR #: [id number] : 1965 Age/Sex: 52/F Req #: [id number] Adm Physician: ARPIT MARTINO MD Ordered by: JAZMINE KHAN MD, MD Report #: [id number] Location: MED/SURG Room/Bed: [facility] Procedure: [id number] IR/SPECIAL PROCEDURE IN INTELLIGENCE SUPPORT OFFICER Exam Date: Exam Time: REPORT STATUS: Signed PROCEDURE: TUNNELED DIALYSIS CATHETER COMPARISON: None. INDICATIONS: End-stage renal disease. COMPLICATIONS: None. MEDICATIONS: None. BLOOD LOSS: None. PROCEDURE: Focus sonographic evaluation of the right neck demonstrated a patent compressible right internal jugular vein. The right neck and upper chest were prepped and draped in the usual sterile fashion. 1% lidocaine was infused into the subcutaneous tissues for local anesthesia. Utilizing direct sonographic guidance, a 21 gauge needle was advanced into the right internal jugular vein. The wire was advanced centrally utilizing fluoroscopic guidance. An access sheath was placed over the wire to secure the vascular access. The wire was upsized to a 0.035 inch wire. The wire was advanced into the inferior vena cava for stability. One percent lidocaine was infused into the subcutaneous tissues along the right upper chest wall. A skin cherelle was made with a #11 blade. The catheter was tunneled to the skin thickening out the venous access site. Serial dilations were performed over the wire. A peel-away sheath was placed over the wire. The wire and stylet were removed. The catheter was placed within the sheath and the peel-away sheath was removed. The catheter tip was positioned within the right atrium. The catheter demonstrated proper function with aspiration and flushing of saline. The catheter lumens were flushed with sterile saline. The catheter was secured to the skin with 3-0 Ethilon suture. The right neck venous access site was closed with 4-0 Vicryl suture and Dermabond. Sterile dressings were applied. There were no immediate complications. The patient tolerated the procedure well. The patient was transferred to the post procedure area in stable unchanged condition for further monitoring. CONCLUSION: Successful placement of a right internal jugular tunneled central venous catheter utilizing fluoroscopic and ultrasound guidance. Dictated by: Libby Muir M.D. on 11/02/2017 at 17: 06 Electronically approved by: Libby Muir M.D. on 11/02/2017 at 17:06 Dictated By: LIBBY MUIR MD 05 Transcribed By: LINSEY on 11/02/171705 COPY TO: JAZMINE KHAN CHEST SINGLE (PORTABLE) [place] [address] Patient Name: GIOVANA THORNE MR #: [id number] : 1965 Age/Sex : 52/F Req #: [id number] [facility] Physician: APRIT MARTINO MD Ordered by: ARPIT MARTINO MD Report #: [id number] Location: MED/SURG Room/Bed: [facility] Procedure: [id number] DX/CHEST SINGLE ( PORTABLE) Exam Date: 10/23/17 Exam Time: 0540 REPORT STATUS: Signed EXAM: CHEST SINGLE (PORTABLE), AP 1 view DATE: 2016 5:38 AM Time stamp on exam: 05 hours INDICATION: Cough COMPARISON: AP view of the chest October 22, 2017 FINDINGS: LINES/TUBES: None LUNGS: Bilateral groundglass opacities, largest in the right lung base. PLEURA: No effusions or pneumothorax. HEART AND MEDIASTINUM: Mediastinal lymphadenopathy. BONES AND SOFT TISSUES: No acute findings. IMPRESSION: Stable appearance of the chest with bilateral groundglass opacities, largest in the right lung base. Signed by: Dr. Luisa Melendez M.D. on 10/23/2017 6:05 AM Dictated By: LUISA MELENDEZ MD 4 Transcribed By: NOHEMY on 10/23/17604 COPY TO: ARPIT MARTINO MD CT CHEST WO [place] [address] Patient Name: GIOVANA THORNE MR #: [id number] : 1965 Age/Sex: 52/F Req #: [id number] [facility] Physician: ARPIT MARTINO MD Ordered by: JACINDA BARRIOS MD Report #: [id number] Location: MED/SURG Room/Bed: [facility] Procedure: [id number] CT/CT CHEST WO Exam Date: 10/22/17 Exam Time: 2045 REPORT STATUS: Signed EXAM: CT CHEST WO DATE: 10/22/2017 3:52 PM Time stamp on exam: 2047 hours INDICATION: Coughing up blood, pulmonary edema COMPARISON: AP view the chest October 22, [address] of the chest January 16, 2017 TECHNIQUE: Multidetector CT scanning of the chest was performed. Coronal and sagittal multiplanar reformations were obtained. Routine protocol performed. IV Contrast: None CTDIvol has been reviewed. It is below the limits set by the Radiation Protocol Committee (RPC). FINDINGS: LUNGS AND AIRWAYS: The trachea and major bronchi are unremarkable. Groundglass opacities in the bilateral upper lungs, left lower lobe and a larger conglomerate of centrilobular groundglass opacities in the right lung base. PLEURA: No effusions or pneumothorax. HEART, MEDIASTINUM, VESSELS: No interval change. Stable mediastinal lymphadenopathy. Mild nonspecific debris in the esophagus. UPPER ABDOMEN: Cholecystectomy MUSCULOSKELETAL: No acute findings. IMPRESSION: Interval development of bilateral multilobar centrilobular groundglass opacities, predominantly in the right lung base. The differential includes multifocal pneumonia, aspiration or hemorrhage. Signed by: Dr. Luisa Melendez M.D. on 10/22/2017 9:49 PM Dictated By: LUISA MELENDEZ MD 48 Transcribed By: NOHEMY on 10/22/172148 COPY TO: JACINDA BARRIOS MD CHEST SINGLE (PORTABLE) [place] [address] Patient Name: GIOVANA THORNE MR #: [id number] : 1964 Age/Sex: 52/F Req #: [id number] Adm Physician: ARPIT MARTINO MD Ordered by: STEFFEN BRODY MD Report #: [id number] Location : MED/SURG Room/Bed: [facility] Procedure: [id number] DX/ CHEST SINGLE (PORTABLE) Exam Date: 10/22/17 Exam Time: 0556 REPORT STATUS: Signed EXAM: CHEST SINGLE (PORTABLE), AP 1 view DATE: 10/22/2017 7:00 AM Time stamp on exam: 0556 hours INDICATION: Cough COMPARISON: AP view of the chest October 21, 2017 FINDINGS: LINES/TUBES: None LUNGS: Pulmonary edema PLEURA: No effusions or pneumothorax. HEART AND MEDIASTINUM: Stable appearance with mediastinal lymphadenopathy BONES AND SOFT TISSUES: No acute findings. IMPRESSION : No interval change Signed by: Dr. Luisa Melendez M.D. on 6:39 AM Dictated By: LUISA MELENDEZ MD 8 Transcribed By: NOHEMY on 10/22/17638 COPY TO: STEFFEN BRODY MD CHEST SINGLE (PORTABLE) [place] [address] Patient Name: GIOVANA THORNE MR #: [id number] : 1964 Age/Sex: 52/F Req #: [id number] Adm Physician: Ordered by: STEFFEN BRODY MD Report #: [id number] Location: ER Room/Bed: Procedure: [id number] DX/CHEST SINGLE (PORTABLE) Exam Date: 10/21/17 Exam Time: 1200 REPORT STATUS: Signed PROCEDURE: CHEST SINGLE (PORTABLE) COMPARISON: Chest radiograph 01/15/2017, chest CT 01/16/2017 INDICATIONS: CHEST PAIN FINDINGS: Lungs are reasonably well inflated. No focal airspace consolidation, pleural effusion, or pneumothorax. Stable cardiomediastinal contour with mild bilateral hilar prominence shown to represent prominent pulmonary arterial structures on comparison chest CT. Pulmonary venous congestion. No acute osseous abnormality. CONCLUSION: Pulmonary venous congestion, similar in degree to that noted in December 2016. Dictated by: Brandon Veliz M.D. on 10/21/2017 at 13: 06 Electronically approved by: Brandon Veliz M.D. on 10/21/2017 at 13:06 Dictated By: BRANDON VELIZ MD 1303 Transcribed By: LINSEY on 10/21/17 1304 COPY TO : STEFFEN BRODY MD
[2018-01-09 18:52] LABS: BASOPHILS % 0.8 % (0.0-1.0); EOSINOPHILS % 1.1 % (0.0-6.0); HEMATOCRIT 43.1 % (34.2-44.1); HEMOGLOBIN 13.4 g/dL (12.0-16.0); LYMPHOCYTES # (AUTO) 0.9 (1.0-3.2); LYMPHOCYTES % 24.2 % (18.0-39.1); MEAN CORPUSCULAR HEMOGLOBIN 28.4 pg (28-32); MEAN CORPUSCULAR HGB CONC 31.1 g/dL (31-35); MEAN CORPUSCULAR VOLUME 91.3 fL (81-99); MONOCYTES # (AUTO) 0.4 (0.2-0.8); MONOCYTES % 9.8 % (4.4-11.3); NEUTROPHILS # (AUTO) 2.4 (2.1-6.9); NEUTROPHILS % 63.8 % (38.7-80.0); PLATELET COUNT 176 x10e3/uL (140-360); RED BLOOD COUNT 4.72 x10e6/uL (3.6-5.1); RED CELL DISTRIBUTION WIDTH 13.3 % (11.7-14.4)
[2018-01-09] MEDS ORDERED: KETOROLAC TROMETHAMINE 30 MG/ML VIAL IV ONE (19:00)
[2018-01-09 19:19] LABS: ALBUMIN 4.2 g/dL (3.5-5.0); ALBUMIN/GLOBULIN RATIO 0.8 (0.8-2.0); ANION GAP 15.7 mmol/L (8-16); CALCIUM 10.5 mg/dL (8.4-10.2); CREATININE, SERUM 4.2 mg/dL (0.57-1.11); POTASSIUM 3.7 mmol/L (3.5-5.1)
[2018-01-09] MEDS ORDERED: ISOSORBIDE MONO30 MG PO (20:05)
[2018-01-09] MEDS ORDERED: LASIX40 MG PO (20:05)
[2018-01-09] MEDS ORDERED: ATORVASTATIN CA40 MG PO (20:05)
[2018-01-09] MEDS ORDERED: DIATRIZOATE MEGL/DIATRIZOA SOD 30 ML BTL PO ONE (20:11)
[2018-01-09 20:18] LABS: BILIRUBIN,URINE 1+ (NEGATIVE); CLARITY,URINE CLOUDY (CLEAR); COLOR,URINE YELLOW (YELLOW); KETONES,URINE NEGATIVE (NEGATIVE); LEUKOCYTE ESTERASE ,URINE 2+ (NEGATIVE); NITRITE,URINE NEGATIVE (NEGATIVE); PROTEIN,URINE DIPSTICK 2+ (NEGATIVE); URINE UROBILINOGEN 0.2 mg/dL (0.2 - 1)
[2018-01-09 20:28] LABS: BACTERIA,URINE MANY /HPF; EPITHELIAL CELLS,URINE MODERATE /LPF; WBC,URINE (MAN) >50 /HPF (0-5)
--- NOTE | 2018-01-09 21:52 | Diagnostic Imaging Report ---
EXAM: CT Abdomen and Pelvis WITHOUT contrast INDICATION: Mid abdominal pain radiating to the right shoulder COMPARISON: None. TECHNIQUE: Abdomen and pelvis were scanned utilizing a multidetector helical scanner from the lung base to the pubic symphysis without administration of IV contrast. Absence of intravenous contrast decreases sensitivity for detection of focal lesions and vascular pathology. Coronal and sagittal reformations were obtained. Routine protocol was performed. IV CONTRAST: None. ORAL CONTRAST: None RADIATION DOSE: Total DLP: 676.73 mGy*cm Estimated effective dose: (DLP x 0.015 x size factor) mSv COMPLICATIONS: None FINDINGS: LINES and TUBES: None. LOWER THORAX: Unremarkable HEPATOBILIARY: No focal hepatic lesions. No biliary ductal dilation. GALLBLADDER: There are cholecystectomy clips. SPLEEN: No splenomegaly. PANCREAS: No focal masses or ductal dilatation. ADRENALS: No adrenal nodules KIDNEYS/URETERS: The kidneys appear diffusely atrophic. No hydronephrosis. No cystic or solid mass lesions. No stones. GI TRACT: No abnormal distention, wall thickening, or evidence of bowel obstruction. There are diverticula within the colon without evidence of diverticulitis. Appendix is not clearly identified. There is however no fat stranding or adenopathy in the right lower quadrant to suggest appendicitis. PELVIC ORGANS/BLADDER: Unremarkable. LYMPH NODES: No lymphadenopathy. VESSELS: There is moderate atherosclerotic disease in the aorta and major arterial branches. PERITONEUM / RETROPERITONEUM: No free air or fluid. BONES: Unremarkable. SOFT TISSUES: Unremarkable. IMPRESSION: 1. No evidence of acute intra-abdominal or pelvic abnormality. 2. The study is limited due to lack of IV contrast. Therefore, pathologies with vascular etiology are difficult to assess. 3. Atrophic kidneys suggests chronic medical renal disease Signed by: Dr. Noe Zuluaga M.D. on 01/09/2018 9:49 PM
[2018-01-09 22:50] VITALS: BP 108/78
== END 2018-01-09 23:13 | disposition home or self-care (01) ==
LOC: ER 17:53
DX: R10.13 Epigastric pain (principal); R10.33 Periumbilical pain; I12.0 Hypertensive chronic kidney disease with stage 5 chronic kidney disease or end stage renal disease; N18.6 End stage renal disease; Z99.2 Dependence on renal dialysis; E78.5 Hyperlipidemia, unspecified; F31.9 Bipolar disorder, unspecified; Z86.73 Personal history of transient ischemic attack (TIA), and cerebral infarction without residual deficits
CPT/HCPCS: 36415; 74176; 80053; 81001; 82150; 83690; 85025; 87086; 93005; 99284; J1885

== ENCOUNTER 2018-04-21 08:51 | Emergency (ER) | payer OTHER ==
[~2018-04-21] VITALS: Ht 160 cm; Wt 93.0 kg
[~2018-04-21 08:51] MED LIST changes: +ATORVASTATIN CA40 MG PO; +ISOSORBIDE MONO30 MG PO
--- OUTSIDE RECORDS SUMMARY | 2018-04-21 08:54 | XMS REPORT | Continuity of Care Document ---
Author Author [facility] Organization [facility] Address [address] [place] [address] Phone Unavailable Care Team Providers Care Artist Representative Name Role Phone BELA MARTINEZ MD PCP Insurance Providers Guarantor Halima Thornen Daniella Address [address] [place] [phone] Email PT [facility] [employer] Policy Number [id number] Subscriber's Name Leslie Thorne Relationship 18 Self / Same As Patient Group Number [id number] Group Name UNEMPLOYED Effective Date 11 Advance Directives Directive Response Recorded Date/Time Does the patient have an advance directive? No 10/21/17 7:21pm If yes, is advance directive on file with [facility]? No 10/21/17 7:21pm If not on file with [facility] will patient provide a copy? No 10/21/17 7:21pm Do you have a Directive to Physician? No 01/09/18 6:06pm Do you have a Medical Power of Senior Counsel Commercial? No 01/09/18 6:06pm Do you have an out of hospital Do Not Resuscitate Order? No 01/09/18 6:06pm Do you have any special needs we should be aware of? No 01/09/18 6:06pm Do you have a support person here with you today? No 01/09/18 6:06pm Did patient receive Notice of Privacy Practices? Yes 01/09/18 6:06pm Did patient receive patient rights and responsibilities? Yes 01/09/18 6:06pm Problems Medical Problem Onset Date Status Anemia 07/21/2015 Acute Anemia Unknown Asthma 09/26/2015 Acute Asthma exacerbation 03/23/2016 Acute Bronchitis Unknown CHF (congestive heart failure) 03/23/2016 Acute CHF exacerbation 09/26/2015 Acute CRI (chronic renal insufficiency) 03/23/2016 Acute Cardiomegaly Unknown Congestive heart failure Unknown Acute Congestive heart failure Unknown Hypertension Unknown Hypokalemia Unknown Renal failure Unknown Medications Current Home Medications Medication Dose Units Route Directions Days Qty Instructions Start Date Atorvastatin Calcium 40 Mg Tablet 40 Mg Oral Bedtime 30 Tab Furosemide (Lasix) 40 Mg Tablet 80 Mg Oral Twice A Day 30 Tab Isosorbide Mononitrate (Isosorbide Mononitrate Er) 30 Mg Tab.er.24h 60 Mg Oral Daily 30 Tab Past Home Medications Medication Directions Ordered Status Albuterol Sulfate (Proair Hfa Inhaler*) 8.5 Gm Inh, 2 Inh Inhalation Every 4 Hours as needed for Shortness Of Breath Discontinued Amlodipine Besylate 5 Mg Tablet, 1 Tab Oral Daily Discontinued Aspirin 81 Mg Tab.chew, 81 Mg Oral Discontinued Atorvastatin Calcium (Lipitor) 80 Mg Tablet, 80 Mg Oral Daily Discontinued Atropine Sulfate 15 Ml Drops, 1 Right Eye Daily Discontinued Budesonide/Formoterol Fumarate (Symbicort 160-4.5 Mcg Inhaler) 10.2 Gm Hfa.aer.ad, 1 Spr Inhalation Twice A Day Discontinued Carvedilol (Coreg) 12.5 Mg Tab, 25 Mg Oral Every 12 Hours Discontinued Cetirizine Hcl 10 Mg Tablet, 10 Mg Oral As Needed Discontinued Clopidogrel Bisulfate (Plavix) 75 Mg Tablet, 75 Mg Oral Daily Discontinued Difluprednate (Durezol) 5 Ml Drops, Right Eye Discontinued Doxazosin Mesylate 2 Mg Tablet, 4 Mg Oral Daily Discontinued Furosemide (Lasix) 40 Mg Tablet, 40 Mg Oral Daily Discontinued Furosemide (Lasix) 20 Mg Tablet, 20 Mg Oral Twice A Day Discontinued Furosemide (Lasix) 40 Mg Tablet, 40 Mg Oral Daily Discontinued Furosemide 40 Mg/4 Ml Solution, 80 Mg Intraven Discontinued Gabapentin 100 Mg Capsule, 100 Mg Oral Three Times A Day Discontinued Hydralazine Hcl 25 Mg Tab, 100 Mg Oral Three Times A Day Discontinued Hydralazine Hcl 25 Mg Tab, 25 Mg Oral Three Times A Day Discontinued Insulin Detemir (Levemir) 100 Unit/1 Ml Vial, 20 Unit Sub-Q Bedtime Discontinued Isosorbide Mononitrate 20 Mg Tablet, 60 Mg Oral Daily Discontinued Labetalol Hcl 200 Mg Tablet, 200 Mg Oral Every 12 Hours Discontinued Labetalol Hcl 200 Mg Tablet, 200 Mg Oral Twice A Day Discontinued Levofloxacin (Levaquin) 250 Mg Tablet, 250 Mg Oral Daily Discontinued Methazolamide 50 Mg Tablet, 50 Mg Oral Three Times A Day Discontinued Nifedipine (Procardia Xl) 30 Mg Tab.er.24, 30 Mg Oral Twice A Day Discontinued Nifedipine (Nifedical Xl) 60 Mg Tab.er.24, 90 Mg Oral Daily Discontinued Ondansetron (Zofran Odt) 4 Mg Tab.rapdis, 4 Mg Sublingual Three Times A Day as needed for Nausea Discontinued Pantoprazole Sodium (Protonix) 40 Mg Tablet.dr, 40 Mg Oral Daily Discontinued Paroxetine Hcl 20 Mg Tablet, 20 Mg Oral Daily Discontinued Paroxetine Hcl 20 Mg Tablet, 10 Mg Oral Daily Discontinued Prednisone 10 Mg Tab, 10 Mg Oral Daily Discontinued Prednisone 20 Mg Tab, 20 Mg Oral Daily Discontinued Social History Social History Problem Response Recorded Date/Time Onset Date Status Hx Psychiatric Problems Y - Schizophrenia and Biplorism 10/21/2017 7:21pm Not Applicable Not Applicable Hx Eating Disorder No 10/21/2017 7:21pm Not Applicable Not Applicable Hx Substance Use Disorder No 10/21/2017 7:21pm Not Applicable Not Applicable Hx Depression Yes 10/21/2017 7:21pm Not Applicable Not Applicable Hx Alcohol Use No 10/21/2017 7:21pm Not Applicable Not Applicable Hx Substance Use Treatment No 10/21/2017 7:21pm Not Applicable Not Applicable Hx Physical Abuse No 10/21/2017 7:21pm Not Applicable Not Applicable Smoking Status Start Date Stop Date Never Smoker Hospital Discharge Instructions No hospital discharge instruction information available. Plan of Care Discharge Date 01/09/18 11:13pm Disposition HOME, SELF-CARE Condition at Discharge Stable Instructions/Education Provided Abdominal Pain - Adult Forms Provided Work/School Excuse Prescriptions See Medication Section Additional Instructions/Education FOLLOW UP WITH DR Stephany CASTELAN ON THURSDAY CALL FOR APPT TAKE MEDICATIONS PRESCRIBED Functional Status No functional status information available. Allergies, Adverse Reactions, Alerts Allergen Type Severity Reaction Status Last Updated penicillin Allergy Unknown Active 01/15/17 Immunizations No immunization information available. Vital Signs Acute Vital Signs Vital Response Date/Time Temperature (Fahrenheit) 98.3 degrees F (97.6 - 99.5) 11/03/2017 4:33pm Pulse Pulse Rate (adult) 71 bpm (60 - 90) 01/09/2018 10:50pm Respiratory Rate 18 bpm (12 - 24) 01/09/2018 10:50pm Blood Pressure 108/78 mm Hg 01/09/2018 10:50pm Height 5 ft 3 in 01/09/2018 5:51pm Weight 205 lb 01/09/2018 5:51pm Body Mass Index 36.3 kg/m^2 01/09/2018 5:51pm Results Laboratory Results Test Name Result Units Flags Reference Collection Date/Time Result Date/ Time Comments Differential Total Cells Counted 100 10/22/2017 6:15am 10/22/2017 10:39am Neutrophils % (Manual) 86 % H 40-74 10/22/2017 6:15am 10/22/2017 10: 39am Band Neutrophils % 4 % 10/22/2017 6:15am 10/22/2017 10:39am Lymphocytes % (Manual) 2 % L 19-48 10/22/2017 6:15am 10/22/2017 10:39am Monocytes % (Manual) 8 % 3.4-9.0 10/22/2017 6:15am 10/22/2017 10:39am Platelet Estimate ADEQUATE 10/22/2017 6:15am 10/22/2017 10:39am Platelet Morphology Comment FEW EDTA CLUMPING 10/22/2017 6:15am 10:39am Red Cell Morphology Comment NORMAL 10/22/2017 6:15am 10/22/2017 10: 39am Prothrombin Time 13.2 seconds 11.9-14.5 10/26/2017 6:40am 10/26/2017 7: 40am Prothromb Time International Ratio 0.95 10/26/2017 6:40am 2016 7:40am Oral Anticoagulant Therapy INR Values: 1. Low Intensity Therapy 1.5 - 2.0 2. Moderate Intensity Therapy 2.0 - 3.0 3. High Intensity Therapy(1) 2.5 - 3.5 4. High Intensity Therapy(2) 3.0 - 4.0 5. Panic Value INR > 5.0 Activated Partial Thromboplast Time 33.4 seconds 23.8-35.5 10/26/2017 6: 40am 10/26/2017 7:40am Urine Amorphous Sediment MANY H FEW 10/23/2017 8:26pm 10/23/2017 10: 23pm Urine Random Total Protein 194.5 mg/dL H 1-14 10/28/2017 1:20pm 2016 4:20pm Urine Total Volume 375 ml/24hr L 800-2000 10/28/2017 1:20pm 10/29/2017 4 :26pm Urine Creatinine 74.11 mg/dL 47-110 10/23/2017 10:26pm 10/28/2017 10: 41am Urine Total Protein 24 Hour 729.3 mg/24hr H 50-100 10/28/2017 1:20pm 4:26pm Urine Protein/Creatinine Ratio 2.00 10/23/2017 10:26pm 10/28/2017 10:41am Urine Test NEGATIVE NEGATIVE 10/26/2017 2:36pm 10/26/2017 2 :44pm Influenza Virus Types A,B Antigen NEGATIVE NEGATIVE 10/22/2017 2:00pm 10/22/2017 2:35pm Bedside Glucose 132 mg/dL H 70-120 11/03/2017 3:14pm 11/03/2017 4:18pm Meter ID: [id number] Hemoglobin A1c Percent 4.9 % 4.0-7.0 10/22/2017 6:15am 10/22/2017 8: 10am Phosphorus Level 3.1 MG/DL 2.3-4.7 11/02/2017 10:10am 11/02/2017 11: 10am Magnesium Level 1.7 MG/DL 1.3-2.1 10/27/2017 6:35am 10/27/2017 7:46am B-Type Natriuretic Peptide 688.7 pg/mL H 0-100 10/21/2017 12:55pm 2016 2:43pm Creatine Kinase 87 IU/L 29-168 10/22/2017 6:15am 10/22/2017 8:01am Creatine Kinase MB 0.90 ng/mL 0.00-5.00 10/22/2017 6:15am 10/22/2017 8: 49am Troponin I 0.158 ng/mL 0-0.300 10/22/2017 6:15am 10/22/2017 8:49am Thyroid Stimulating Hormone (TSH) 0.945 uIU/mL 0.350-4.940 10/23/2017 6: 05am 10/23/2017 7:28am Hepatitis B Surface Antibody, Quant 4.0 mIU/mL L Immunity>9.9 10/26/2017 5:31pm 10/28/2017 8:21am Status of Immunity Anti-HBs Level Inconsistent with Immunity 0.0 - 9.9 Consistent with Immunity >9.9 Hepatitis B Core Total Antibody Negative Negative 10/26/2017 5:31pm 10/28/2017 8:21am HIV (1&2) Antibody NON-REACTIVE NONREACTIVE 10/24/2017 6:20am 2016 7:33am HIV P24 Antigen NON-REACTIVE NONREACTIVE 10/24/2017 6:20am 2016 7:33am Hepatitis B Surface Antigen Negative Negative 10/26/2017 5:31pm 10/28 8:21am Hepatitis B Core IgM Antibody Negative Negative 10/26/2017 5:31pm 8:21am Performed at: [facility] [id number] Senior Inspector: Jorje Cobian MD, Phone: [phone] p-ANCA Titer <1:20 titer Neg:<1:20 10/24/2017 6:20am 10/26/2017 7:46pm The presence of positive fluorescence exhibiting P-ANCA or C-ANCA patterns alone is not specific for the diagnosis of Joseph's Granulomatosis (WG) or microscopic polyangiitis. Decisions about treatment should not be based solely on ANCA IFA results. The International ANCA Group Consensus recommends follow up testing of positive sera with both MA- 3 and MPO-ANCA enzyme immunoassays. As many as 5% serum samples are positive only by EIA. Ref. AM J Clin Pathol 1999;111:507-513. c-ANCA Titer <1:20 titer Neg:<1:20 10/24/2017 6:20am 10/26/2017 7:46pm Atypical p-ANCA <1:20 titer Neg:<1:20 10/24/2017 6:20am 10/26/2017 7: 46pm The atypical pANCA pattern has been observed in a significant percentage of patients with ulcerative colitis, primary sclerosing cholangitis and autoimmune hepatitis. Performed at: [address] [id number] Senior Inspector: Morris Back MD, Phone: [phone] Rapid Plasma Reagin Non Reactive Non Reactive 10/22/2017 7:05pm 10/24 9:51am Performed at: [address] [id number] Senior Inspector: Jorje Cobian MD, Phone: [phone] Urine Legionella Antigen Negative Negative 10/26/2017 2:36pm 2016 8:55pm Presumptive negative for L. pneumophila serogroup 1 antigen in urine, suggesting no recent or current infection. Legionnaires' disease cannot be ruled out since other serogroups and species may also cause disease. Performed at: [address] [id number] Senior Inspector: Morris Back MD, Phone: [phone] Treponema pallidum Ab (FTA-ABS) Reactive H Non Reactive 10/22/2017 7: 05pm 10/27/2017 5:21am Performed at: [address] [id number] Senior Inspector: Morris Back MD, Phone: [phone] White Blood Count 3.68 x10e3/uL L 4.8-10.8 01/09/2018 6:15pm 01/09/2018 7:15pm Red Blood Count 4.72 x10e6/uL 3.6-5.1 01/09/2018 6:15pm 01/09/2018 7: 15pm Hemoglobin 13.4 g/dL 12.0-16.0 01/09/2018 6:15pm 01/09/2018 7:15pm Hematocrit 43.1 % 34.2-44.1 01/09/2018 6:15pm 01/09/2018 7:15pm Mean Corpuscular Volume 91.3 fL 81-99 01/09/2018 6:15pm 01/09/2018 7: 15pm Mean Corpuscular Hemoglobin 28.4 pg 28-32 01/09/2018 6:15pm 01/09/2018 7:15pm Mean Corpuscular Hemoglobin Concent 31.1 g/dL 31-35 01/09/2018 6:15pm 01/09/2018 7:15pm Red Cell Distribution Width 13.3 % 11.7-14.4 01/09/2018 6:15pm 2017 7:15pm Platelet Count 176 x10e3/uL 140-360 01/09/2018 6:15pm 01/09/2018 7: 15pm Neutrophils (%) (Auto) 63.8 % 38.7-80.0 01/09/2018 6:15pm 01/09/2018 7: 15pm Lymphocytes (%) (Auto) 24.2 % 18.0-39.1 01/09/2018 6:15pm 01/09/2018 7: 15pm Monocytes (%) (Auto) 9.8 % 4.4-11.3 01/09/2018 6:15pm 01/09/2018 7: 15pm Eosinophils (%) (Auto) 1.1 % 0.0-6.0 01/09/2018 6:15pm 01/09/2018 7: 15pm Basophils (%) (Auto) 0.8 % 0.0-1.0 01/09/2018 6:15pm 01/09/2018 7:15pm IM GRANULOCYTES % 0.3 % 0.0-1.0 01/09/2018 6:15pm 01/09/2018 7:15pm Neutrophils # (Auto) 2.4 2.1-6.9 01/09/2018 6:15pm 01/09/2018 7:15pm Lymphocytes # (Auto) 0.9 L 1.0-3.2 01/09/2018 6:15pm 01/09/2018 7: 15pm Monocytes # (Auto) 0.4 0.2-0.8 01/09/2018 6:15pm 01/09/2018 7:15pm Eosinophils # (Auto) 0.0 0.0-0.4 01/09/2018 6:15pm 01/09/2018 7:15pm Basophils # (Auto) 0.0 0.0-0.1 01/09/2018 6:15pm 01/09/2018 7:15pm Absolute Immature Granulocyte (auto 0.01 x10e3/uL 0-0.1 01/09/2018 6: 15pm 01/09/2018 7:15pm Urine Color YELLOW YELLOW 01/09/2018 8:10pm 01/09/2018 8:18pm Urine Clarity CLOUDY H CLEAR 01/09/2018 8:10pm 01/09/2018 8:18pm Urine Specific [place] 1.020 1.010-1.025 01/09/2018 8:10pm 2017 8:18pm Urine pH 5 5 - 7 01/09/2018 8:10pm 01/09/2018 8:18pm Urine Leukocyte Esterase 2+ H NEGATIVE 01/09/2018 8:10pm 01/09/2018 8: 18pm Urine Nitrite NEGATIVE NEGATIVE 01/09/2018 8:10pm 01/09/2018 8:18pm Urine Protein 2+ H NEGATIVE 01/09/2018 8:10pm 01/09/2018 8:18pm Urine Glucose (UA) NEGATIVE NEGATIVE 01/09/2018 8:10pm 01/09/2018 8: 18pm Urine Ketones NEGATIVE NEGATIVE 01/09/2018 8:10pm 01/09/2018 8:18pm Urine Urobilinogen 0.2 mg/dL 0.2 - 1 01/09/2018 8:10pm 01/09/2018 8: 18pm Urine Bilirubin 1+ H NEGATIVE 01/09/2018 8:10pm 01/09/2018 8:18pm Urine Blood TRACE H NEGATIVE 01/09/2018 8:10pm 01/09/2018 8:18pm Urine WBC >50 /HPF H 0-5 01/09/2018 8:10pm 01/09/2018 8:28pm Urine RBC 11-20 /HPF H 0-5 01/09/2018 8:10pm 01/09/2018 8:28pm Urine Bacteria MANY /HPF H NONE 01/09/2018 8:10pm 01/09/2018 8:28pm Urine Epithelial Cells MODERATE /LPF NONE 01/09/2018 8:10pm 01/09/2018 8:28pm Sodium Level 138 mmol/L 136-145 01/09/2018 6:15pm 01/09/2018 8:04pm Potassium Level 3.7 mmol/L 3.5-5.1 01/09/2018 6:15pm 01/09/2018 8:04pm Chloride Level 97 mmol/L L 98-107 01/09/2018 6:15pm 01/09/2018 8:04pm Carbon Dioxide Level 29 mmol/L 22-29 01/09/2018 6:15pm 01/09/2018 8: 04pm Anion Gap 15.7 mmol/L 8-16 01/09/2018 6:1501/09/2018 8:04pm Blood Urea Nitrogen 21 mg/dL 7-01/09/2018 6:15pm 01/09/2018 8:04pm Creatinine 4.20 mg/dL H 0.57-1.11 01/09/2018 6:15pm 01/09/2018 8:04pm BUN/Creatinine Ratio 5 L 6-25 01/09/2018 6:15pm 01/09/2018 8:04pm Estimat Glomerular Filtration Rate 13 ML/MIN L 60- 01/09/2018 6:1508/2018 8:04pm Ranges were taken from the National Kidney Disease Education Program and the National Kidney Foundation literature. Reference ranges: 60 or greater: Normal 16-59 (for 3 consecutive months): Chronic kidney disease 15 or less: Kidney failure Glucose Level 158 mg/dL H 74-118 01/09/2018 6:15pm 01/09/2018 8:04pm Calcium Level 10.5 mg/dL H 8.4-10.2 01/09/2018 6:15pm 01/09/2018 8:04pm Total Bilirubin 0.9 mg/dL 0.2-1.2 01/09/2018 6:15pm 01/09/2018 8:04pm Aspartate Amino Transf (AST/SGOT) 14 IU/L 5-34 01/09/2018 6:15pm 2017 8:04pm Alanine Aminotransferase (ALT/SGPT) 13 IU/L 0-55 01/09/2018 6:15pm 08/2018 8:04pm Total Protein 9.5 g/dL H 6.5-8.1 01/09/2018 6:15pm 01/09/2018 8:04pm Albumin 4.2 g/dL 3.5-5.0 01/09/2018 6:15pm 01/09/2018 8:04pm Globulin 5.3 g/dL H 2.3-3.5 01/09/2018 6:15pm 01/09/2018 8:04pm Albumin/Globulin Ratio 0.8 0.8-2.0 01/09/2018 6:15pm 01/09/2018 8: 04pm Alkaline Phosphatase 140 IU/L 40-150 01/09/2018 6:15pm 01/09/2018 8: 04pm Amylase Level 243 U/L H 25-125 01/09/2018 6:15pm 01/09/2018 8:04pm Lipase 125 U/L H 8-78 01/09/2018 6:15pm 01/09/2018 8:04pm Microbiology Results Procedure Source Organism/Result Collection Date/Time Result Date/Time Result Status Blood Culture Blood NO GROWTH AFTER 5 DAYS, FINAL REPORT 10/23/2017 4:44pm 10/28/2017 4:55pm Final Procedures Procedure Status Date Provider(s) PERFORMANCE OF URINARY FILTRATION, <6 HRS/DAY Completed 10/26/17 JAZMINE KHAN PERFORMANCE OF URINARY FILTRATION, <6 HRS/DAY Completed 10/26/17 JAZMINE KHAN INSERTION OF INFUSION DEV INTO SUP VENA CAVA, PERC APPROACH Completed LIBBY MUIR MD ULTRASONOGRAPHY OF SUPERIOR VENA CAVA, GUIDANCE Completed 11/02/17 LIBBY MUIR MD Computed tomography of chest without contrast Active 10/22/[address] of abdomen and pelvis without contrast Active 01/09/18 STEFFEN BRODY MD Encounters Encounter Location Arrival/Admit Date Discharge/Depart Date Attending Provider Departed Emergency Room [facility] 01/09/18 5:53pm 11:13pm ESTEBAN MARTINES MD Discharged Inpatient [facility] 10/21/17 3:42pm 11/03/17 5:54pm ARPIT MARTINO MD
[2018-04-21] MEDS ORDERED: HYDROCODONE/APAP 5MG-325MG TAB PO STA (09:42)
[2018-04-21 10:12] LABS: BASOPHILS % 0.4 % (0.0-1.0); EOSINOPHILS # (AUTO) 0.1 (0.0-0.4); EOSINOPHILS % 1.8 % (0.0-6.0); HEMATOCRIT 43.9 % (34.2-44.1); HEMOGLOBIN 13.8 g/dL (12.0-16.0); LYMPHOCYTES # (AUTO) 1.3 (1.0-3.2); LYMPHOCYTES % 29.6 % (18.0-39.1); MEAN CORPUSCULAR HEMOGLOBIN 30.7 pg (28-32); MEAN CORPUSCULAR HGB CONC 31.4 g/dL (31-35); MEAN CORPUSCULAR VOLUME 97.6 fL (81-99); MONOCYTES # (AUTO) 0.5 (0.2-0.8); MONOCYTES % 10.2 % (4.4-11.3); NEUTROPHILS # (AUTO) 2.6 (2.1-6.9); NEUTROPHILS % 57.8 % (38.7-80.0); PLATELET COUNT 222 x10e3/uL (140-360); RED CELL DISTRIBUTION WIDTH 15.2 % (11.7-14.4)
[2018-04-21 10:23] LABS: ALBUMIN 4.1 g/dL (3.5-5.0); ALBUMIN/GLOBULIN RATIO 0.9 (0.8-2.0); ANION GAP 19.4 mmol/L (8-16); CALCIUM 9.7 mg/dL (8.4-10.2); CREATININE, SERUM 7.12 mg/dL (0.57-1.11); POTASSIUM 4.4 mmol/L (3.5-5.1)
--- NOTE | 2018-04-21 10:34 | Diagnostic Imaging Report ---
PROCEDURE:FEMUR TWO VIEW MINIMUM RIGHT COMPARISON:None. INDICATIONS:LEG PAIN FINDINGS: No acute, displaced fracture or dislocation. There is joint space narrowing and marginal osteophytosis of the partially visualized hip and knee joints. Atherosclerotic vascular calcifications. Soft tissues are otherwise unremarkable. CONCLUSION: No acute osseous abnormality. Dictated by: Gama Perez M.D. on 04/21/2018 at 10:37 Electronically approved by: Gama Perez M.D. on 04/21/2018 at 10:37
== END 2018-04-21 11:34 | disposition home or self-care (01) ==
LOC: ER 08:51
DX: M25.551 Pain in right hip (principal); M79.651 Pain in right thigh
CPT/HCPCS: 36415; 80053; 85025; 99283

== ENCOUNTER 2020-06-09 10:02 | Emergency (ER) | payer OTHER ==
[~2020-06-09] VITALS: Ht 160 cm; Wt 93.0 kg
--- NOTE | 2020-06-09 12:11 | Diagnostic Imaging Report ---
EXAMINATION: CHEST SINGLE (PORTABLE) INDICATION: missed dialysis, cough/sob COMPARISON: Multiple prior chest x-ray examinations most recent dated 10/23/2017. FINDINGS: AP view TUBES and LINES: None. LUNGS/PLEURA: Lungs are well inflated. There are bilateral interstitial opacities, likely due to pulmonary edema. There is no pleural effusion or pneumothorax. HEART AND MEDIASTINUM: The cardiomediastinal silhouette is unremarkable. BONES AND SOFT TISSUES: No acute osseous lesion. Soft tissues are unremarkable. UPPER ABDOMEN: No free air under the diaphragm. IMPRESSION: Bilateral interstitial opacities, likely due to pulmonary edema. Pneumonia could be considered in appropriate clinical setting. Signed by: Ren Ozuna MD on 06/09/2020 12:08 PM
[2020-06-09 12:25] LABS: BASOPHILS % 0.4 % (0.0-1.0); EOSINOPHILS # (AUTO) 0.3 (0.0-0.4); HEMATOCRIT 32.6 % (34.2-44.1); HEMOGLOBIN 9.8 g/dL (12.0-16.0); LYMPHOCYTES # (AUTO) 1.1 (1.0-3.2); MEAN CORPUSCULAR HEMOGLOBIN 28.3 pg (28-32); MEAN CORPUSCULAR HGB CONC 30.1 g/dL (31-35); MEAN CORPUSCULAR VOLUME 94.2 fL (81-99); MONOCYTES # (AUTO) 0.5 (0.2-0.8); MONOCYTES % 11.5 % (4.4-11.3); NEUTROPHILS # (AUTO) 2.7 (2.1-6.9); NEUTROPHILS % 57.2 % (38.7-80.0); PLATELET COUNT 228 x10e3/uL (140-360); RED BLOOD COUNT 3.46 x10e6/uL (3.6-5.1)
[2020-06-09 12:28] LABS: CLARITY,URINE CLOUDY (CLEAR); COLOR,URINE YELLOW (YELLOW)
[2020-06-09 12:29] LABS: BILIRUBIN,URINE NEGATIVE (NEGATIVE); KETONES,URINE NEGATIVE (NEGATIVE); LEUKOCYTE ESTERASE ,URINE TRACE (NEGATIVE); NITRITE,URINE NEGATIVE (NEGATIVE); PROTEIN,URINE DIPSTICK 2+ (NEGATIVE); URINE UROBILINOGEN 0.2 mg/dL (0.2 - 1)
[2020-06-09 12:34] LABS: BACTERIA,URINE MANY /HPF; EPITHELIAL CELLS,URINE MANY /LPF; RBC,URINE 0-5 /HPF (0-5); WBC,URINE (MAN) 0-5 /HPF (0-5)
[2020-06-09 12:44] LABS: PARTIAL THROMBOPLASTIN TIME 30.5 seconds (23.8-35.5)
[2020-06-09 12:55] LABS: ALBUMIN 3.1 g/dL (3.5-5.0); ALBUMIN/GLOBULIN RATIO 0.7 (0.8-2.0); ANION GAP 17.2 mmol/L (8-16); CALCIUM 7.9 mg/dL (8.4-10.2); CREATININE, SERUM 9.09 mg/dL (0.57-1.11); POTASSIUM 4.2 mmol/L (3.5-5.1)
[2020-06-09 13:02] LABS: CREATINE KINASE MB 0.7 ng/mL (0-5.0)
[2020-06-09 14:19] LABS: INR 0.9; PROTHROMBIN TIME 12.7 seconds (11.9-14.5)
--- NOTE | 2020-06-09 15:22 | Emergency Department Note ---
History of Present Illnes History of Present Illness Chief Complaint: COVID PUI History of Present Illness This is a 54 year old female Per ems patient has had a cough for several days, she was recently tested for COVID, but results are pending. Patient denies any other symptoms such as fever, shortness of breath, body aches or chills. Historian: Judge Clerk/EMS Arrival Mode: [place] Additional Treatment EDUCATIONAL PROGRAM ASSISTANT: none Car Builder Required: No Onset (how long ago): day(s) (3) Radiation: Reports non-radiation Severity: moderate Onset quality: gradual Timing of current episode: intermittent Progression: waxing and waning Chronicity: new Context: Denies recent illness Relieving factors: none Exacerbating factors: none Associated symptoms: Reports denies other symptoms, Reports headaches, Reports other (achy); Denies shortness of breath Treatments prior to arrival: none Past Medical/Family History Physician Review I have reviewed the patient's past medical and family history. Any updates have been documented here. Past Medical History Recent Fever: No Clinical Suspicion of Infectio: No New/Unexplained Change in Ment: No Past Medical History: Chronic Kidney Disease Other Medical History: DIALYSIS TUE/THUR/SAT ARTHRITIS SCHIZOPHRENIA BIPOLAR RESP FAILURE NEUROPATHY GERD ANXIETY CATARACTS Past Surgical History: Hysterectomy Other Surgery: R CARPAL TUNNEL SOME UNKNOWN BREAST SURGERY Lt FA fistula Social History Smoking Cessation: Never Smoker Counseling Performed: No Alcohol Use: None Any Illegal Drug Use: No Physically hurt or threatened: No Other Last Tetanus: Unknown Any Pre-Existing Lines (PICC,: No (dialysis to left eye) Review of Systems Review of Systems Constitutional: Reports no symptoms EENTM: Reports no symptoms Cardiovascular: Reports no symptoms Respiratory: Reports as per HPI Gastrointestinal: Reports no symptoms Genitourinary: Reports no symptoms Musculoskeletal: Reports no symptoms Integumentary: Reports no symptoms Neurological: Reports no symptoms Psychological: Reports no symptoms Endocrine: Reports no symptoms Hematological/Lymphatic: Reports no symptoms Physical Exam Related Data Allergies: Coded Allergies: penicillin (Verified Allergy, Unknown, 01/15/17) Triage Vital Signs Vital Signs Date Time Temp Pulse Resp B/P (MAP) Pulse Ox O2 Delivery O2 Flow Rate FiO2 06/09/20 10:06 98.0 65 20 124/67 100 Room Air Vital signs reviewed: Yes Physical Exam CONSTITUTIONAL Constitutional: Present well-developed, Present well-nourished HENT HENT: Present normocephalic, Present atraumatic, Present oropharynx clear/araceli st, Present nose normal HENT L/R: Present left ext ear normal, Present right ext ear normal EYES Eyes: Reports PERRL, Reports conjunctivae normal NECK Neck: Present ROM normal PULMONARY Pulmonary: Present effort normal, Present breath sounds normal CARDIOVASCULAR Cardiovascular: Present regular rhythm, Present heart sounds normal, Present capillary refill normal, Present normal rate GASTROINTESTINAL Abdominal: Present soft, Present nontender, Present bowel sounds normal GENITOURINARY Genitourinary: Present exam deferred SKIN Skin: Present warm, Present dry MUSCULOSKELETAL Musculoskeletal: Present ROM normal NEUROLOGICAL Neurological: Present alert, Present oriented x 3, Present no gross motor or sensory deficits PSYCHOLOGICAL Psychological: Present mood/affect normal, Present judgement normal Results Laboratory Result Diagram: 06/09/20 1148 06/09/20 1148 Laboratory Laboratory Tests Test 06/09/20 11:48 White Blood Count 4.70 x10e3/uL (4.8-10.8) Red Blood Count 3.46 x10e6/uL (3.6-5.1) Hemoglobin 9.8 g/dL (12.0-16.0) Hematocrit 32.6 % (34.2-44.1) Mean Corpuscular Volume 94.2 fL (81-99) Mean Corpuscular Hemoglobin 28.3 pg (28-32) Mean Corpuscular Hemoglobin Concent 30.1 g/dL (31-35) Red Cell Distribution Width 15.0 % (11.7-14.4) Platelet Count 228 x10e3/uL (140-360) Neutrophils (%) (Auto) 57.2 % (38.7-80.0) Lymphocytes (%) (Auto) 23.0 % (18.0-39.1) Monocytes (%) (Auto) 11.5 % (4.4-11.3) Eosinophils (%) (Auto) 7.0 % (0.0-6.0) Basophils (%) (Auto) 0.4 % (0.0-1.0) Neutrophils # (Auto) 2.7 (2.1-6.9) Lymphocytes # (Auto) 1.1 (1.0-3.2) Monocytes # (Auto) 0.5 (0.2-0.8) Eosinophils # (Auto) 0.3 (0.0-0.4) Basophils # (Auto) 0.0 (0.0-0.1) Absolute Immature Granulocyte (auto 0.04 x10e3/uL (0-0.1) Prothrombin Time 12.7 seconds (11.9-14.5) Prothromb Time International Ratio 0.90 Activated Partial Thromboplast Time 30.5 seconds (23.8-35.5) Urine Color Yellow (YELLOW) Urine Clarity Cloudy (CLEAR) Urine pH 8.5 (5 - 7) Urine Specific [place] 1.015 (1.010-1.025) Urine Protein 2+ (NEGATIVE) Urine Glucose (UA) Negative (NEGATIVE) Urine Ketones Negative (NEGATIVE) Urine Blood Negative (NEGATIVE) Urine Nitrite Negative (NEGATIVE) Urine Bilirubin Negative (NEGATIVE) Urine Urobilinogen 0.2 mg/dL (0.2 - 1) Urine Leukocyte Esterase Trace (NEGATIVE) Urine RBC 0-5 /HPF (0-5) Urine WBC 0-5 /HPF (0-5) Urine Epithelial Cells Many /LPF (NONE) Urine Bacteria Many /HPF (NONE) Sodium Level 141 mmol/L (136-145) Potassium Level 4.2 mmol/L (3.5-5.1) Chloride Level 99 mmol/L (98-107) Carbon Dioxide Level 29 mmol/L (22-29) Anion Gap 17.2 mmol/L (8-16) Blood Urea Nitrogen 55 mg/dL (7-26) Creatinine 9.09 mg/dL (0.57-1.11) Estimat Glomerular Filtration Rate 5 ML/MIN (60-) BUN/Creatinine Ratio 6 (6-25) Glucose Level 84 mg/dL (74-118) Calcium Level 7.9 mg/dL (8.4-10.2) Total Bilirubin 0.5 mg/dL (0.2-1.2) Aspartate Amino Transf (AST/SGOT) 7 IU/L (5-34) Alanine Aminotransferase (ALT/SGPT) 8 IU/L (0-55) Alkaline Phosphatase 104 IU/L (40-150) Creatine Kinase 99 IU/L (29-168) Creatine Kinase MB 0.70 ng/mL (0-5.0) Troponin I 0.041 ng/mL (0-0.300) Total Protein 7.6 g/dL (6.5-8.1) Albumin 3.1 g/dL (3.5-5.0) Globulin 4.5 g/dL (2.3-3.5) Albumin/Globulin Ratio 0.7 (0.8-2.0) Lab results reviewed: Yes Imaging Imaging results reviewed: Yes Impressions EXAMINATION: CHEST SINGLE (PORTABLE) INDICATION: missed dialysis, cough/sob COMPARISON: Multiple prior chest x-ray examinations most recent dated 10/23/2017. FINDINGS: AP view TUBES and LINES: None. LUNGS/PLEURA: Lungs are well inflated. There are bilateral interstitial opacities, likely due to pulmonary edema. There is no pleural effusion or pneumothorax. HEART AND MEDIASTINUM: The cardiomediastinal silhouette is unremarkable. BONES AND SOFT TISSUES: No acute osseous lesion. Soft tissues are unremarkable. UPPER ABDOMEN: No free air under the diaphragm. IMPRESSION: Bilateral interstitial opacities, likely due to pulmonary edema. Pneumonia could be considered in appropriate clinical setting. Signed by: Ren Ozuna MD on 06/09/2020 12:08 PM Procedures 12 Lead ECG Interpretation ECG Interpretation : ECG: ECG 1 Car Builder: Interpreted by ED physician Date: Jun 09, 2020 Time: 11:40 Prior ECG tracings: reviewed Rhythm: sinus bradycardia Rate: bradycardia (59) QRS axis: normal ST segments normal: Yes T waves normal: Yes Clinical Impression: abnormal ECG (qt prolonged) Assessment & Plan Medical Decision Making MDM cbc, chem, cardiacs, ecg, blood cx's, cxr, covid swab - r/o covid, volume overload due to missing hd, STEMI/NSTEMI, pneumonia Reassessment Reassessment will give Lasix, f/u HD on thursday, rted prn sx's worsen Assessment & Plan Final Impression: (1) Renal failure (2) CHF (congestive heart failure) Depart Disposition: HOME, SELF-CARE Last Vital Signs Date Time Temp Pulse Resp B/P (MAP) Pulse Ox O2 Delivery O2 Flow Rate FiO2 06/09/20 15:09 56 18 133/75 100 06/09/20 11:13 98.5 06/09/20 10:06 Room Air Home Meds Reported Medications Atorvastatin Calcium (ATORVASTATIN CALCIUM) 40 Mg Tablet, 40 MG PO HS, #30 TAB 01/09/18 Furosemide (LASIX) 40 Mg Tablet, 80 MG PO BID, #30 TAB 01/09/18 Isosorbide Mononitrate (ISOSORBIDE MONONITRATE ER) 30 Mg Tab.er.24h, 60 MG PO DAILY, #30 TAB 01/09/18 ESTEBAN MARTINES MD Jun 09, 2020 15:22
[2020-06-09] MEDS ORDERED: FUROSEMIDE INJ 10 MG/ML 4 ML VIAL IV NR (15:30)
== END 2020-06-09 17:05 | disposition home or self-care (01) ==
LOC: ER 10:33
DX: N18.9 Chronic kidney disease, unspecified (principal); I50.9 Heart failure, unspecified; Z99.2 Dependence on renal dialysis; R05 Cough
CPT/HCPCS: 36415; 71045; 80053; 81001; 82550; 82553; 84484; 85025; 85610; 85730; 87040; 87635; 93005; 99284; J1940; U0002